=== PATIENT | female | born 1950 | race Caucasian/White ===

== ENCOUNTER → 2016-09-19 | Outpatient (REF) | payer MEDICARE, OTHER | LOC: M LAB REF 16:44 | PROVIDERS: ATTEND Internal Medicine | DX: N30.01 Acute cystitis with hematuria (principal) ==

== ENCOUNTER → 2016-10-02 | Outpatient (CLI) | payer MEDICARE, OTHER | LOC: M RAD 10:01 | DX: R41.3 Other amnesia (principal) ==

== ENCOUNTER → 2019-10-23 | Outpatient (CLI) | payer MEDICARE, OTHER ==
[~2019-10-23] MED LIST: ATOR40TA75 PO; CITA40TA4 PO; CLON0.5T17 PO; DOCU100C16 PO; ESOM1CAP5 PO; FLAG500T PO; LEVA750T7 PO; LEVO75TA4 PO; METH4PACK PO; METH750T2 PO; OMEP-221 PO; QUET200T2 PO; QUET400T PO; TRAZ-257 PO
[2019-10-23 14:25] LABS: BASO # 0.1 10^3/uL (0.0-0.2); BASO % 0.6 % (0.0-1.0); EOS # 0.2 10^3/uL (0.0-0.5); EOS % 1.7 % (0.0-3.0); HEMATOCRIT 43.7 % (36.0-47.0); HEMOGLOBIN 14.4 g/dl (12.0-15.5); LYMPH # 2.6 10^3/uL (1.5-5.0); LYMPH % 26.2 % (24.0-44.0); MEAN CORPUSCULAR HEMOGLOBIN 33.4 pg (27.0-33.0); MEAN CORPUSCULAR VOLUME 101.4 fl (80.0-96.0); MONO # 0.7 10^3/uL (0.0-0.8); MONO % 7.6 % (0.0-5.0); NEUTROPHILS # 6.2 10^3/uL (1.5-8.5); NEUTROPHILS % 63.5 % (36.0-66.0); PLATELET COUNT, AUTOMATED 236 10^3/uL (150-450); RED BLOOD COUNT 4.31 10^6/uL (4.00-5.40); WHITE BLOOD COUNT 9.8 10^3/uL (4.0-10.0)
[2019-10-23 14:58] LABS: ALBUMIN 4.1 GM/DL (3.2-5.2); ALT/SGPT 28 U/L (12-78); BILIRUBIN,TOTAL 0.3 MG/DL (0.2-1.0); BLOOD UREA NITROGEN 20 MG/DL (7-18); CALCIUM LEVEL 9.2 MG/DL (8.8-10.2); CARBON DIOXIDE LEVEL 25 MEQ/L (21-32); CHLORIDE LEVEL 108 MEQ/L (98-107); CK-MB VALUE MASS 2.6 NG/ML (<3.6); CPK CREATINE PHOSPHOKINASE 217 U/L (26-192); CREATININE FOR GFR 2.36 MG/DL (0.55-1.30); GLOMERULAR FILTRATION RATE 21.8 (>45); GLUCOSE, FASTING 87 MG/DL (70-100); POTASSIUM SERUM 4.2 MEQ/L (3.5-5.1); SODIUM LEVEL 138 MEQ/L (136-145); TOTAL PROTEIN 7.8 GM/DL (6.4-8.2); TROPONIN I < 0.02 NG/ML (< 0.10)
--- NOTE | 2019-10-24 09:52 | REP ---
REASON: Pleurodynia. PRIORS: None. There is a calcified granuloma in the right lower lobe. Lung springer are otherwise clear. The pleural angles are sharp, and the heart is not enlarged. IMPRESSION: No acute cardiopulmonary disease. Calcified granuloma right lower lobe. Electronically Signed by Seth Munoz DO 10/25/2019 08:29 A
--- NOTE | 2019-10-24 10:31 | REP ---
REASON: Nausea and vomiting. Supine and upright views of the abdomen show the intestinal gas pattern to be nonspecific. There are a few gas-filled nondilated small bowel loops present. This is in no particular fashion. The upright view shows no air-fluid levels in a particular fashion. There is no evidence of free subdiaphragmatic air. The osseous structures are within normal limits for the patient's age. IMPRESSION: Nonspecific intestinal gas pattern. Minimal ileus cannot be ruled out. Electronically Signed by Seth Munoz DO 10/25/2019 08:30 A
== END ==
LOC: M WUC 13:23
PROVIDERS: ATTEND Physician Assistant
DX: R07.1 Chest pain on breathing (principal); R11.2 Nausea with vomiting, unspecified

== ENCOUNTER 2019-12-12 22:47 | Inpatient (IN) | payer MEDICARE, OTHER ==
[~2019-12-12] VITALS: Ht 165.1 cm; Wt 95.7 kg
[2019-12-12] MEDS ORDERED: ONDANSETRON 4MG/2ML VIAL IV ONE (23:15)
[2019-12-12] MEDS ORDERED: NS 1,000 ML IV ONE (23:15)
[2019-12-12 23:23] LABS: BASO % 0.3 % (0.0-1.0); EOS % 0.3 % (0.0-3.0); HEMATOCRIT 42.6 % (36.0-47.0); HEMOGLOBIN 13.9 g/dl (12.0-15.5); LYMPH # 1.2 10^3/uL (1.5-5.0); LYMPH % 8.2 % (24.0-44.0); MEAN CORPUSCULAR HEMOGLOBIN 32.6 pg (27.0-33.0); MEAN CORPUSCULAR HGB CONC 32.6 g/dl (32.0-36.5); MEAN CORPUSCULAR VOLUME 99.8 fl (80.0-96.0); MONO % 6.8 % (0.0-5.0); NEUTROPHILS # 11.9 10^3/uL (1.5-8.5); NEUTROPHILS % 83.7 % (36.0-66.0); PLATELET COUNT, AUTOMATED 188 10^3/uL (150-450); RED BLOOD COUNT 4.27 10^6/uL (4.00-5.40); WHITE BLOOD COUNT 14.2 10^3/uL (4.0-10.0)
[2019-12-12 23:32] LABS: INR 0.96
[2019-12-12 23:50] LABS: ALT/SGPT 718 U/L (12-78); BILIRUBIN,TOTAL 1.6 MG/DL (0.2-1.0); BLOOD UREA NITROGEN 30 MG/DL (7-18); CALCIUM LEVEL 8.6 MG/DL (8.8-10.2); CARBON DIOXIDE LEVEL 27 MEQ/L (21-32); CHLORIDE LEVEL 105 MEQ/L (98-107); CPK CREATINE PHOSPHOKINASE 121 U/L (26-192); CREATININE FOR GFR 2.29 MG/DL (0.55-1.30); GLOMERULAR FILTRATION RATE 22.5 (>45); GLUCOSE, FASTING 198 MG/DL (70-100); LIPASE 99 U/L (73-393); MB/CK RELATIVE INDEX 0.83 (< OR =4); SODIUM LEVEL 139 MEQ/L (136-145); TOTAL PROTEIN 7.8 GM/DL (6.4-8.2); TROPONIN I < 0.02 NG/ML (< 0.10)
--- NOTE | 2019-12-13 00:02 | REPVR ---
PROCEDURE INFORMATION: Exam: CT Abdomen And Pelvis Without Contrast Exam date and time: 12/12/2019 11:25 PM Age: 69 years old Clinical indication: Abdominal pain; Generalized; Additional info: Gen abd pain, flank pain, ckd iv TECHNIQUE: Imaging protocol: Computed tomography of the abdomen and pelvis without contrast. Radiation optimization: All CT scans at this facility use at least one of these dose optimization techniques: automated exposure control; mA and/or kV adjustment per patient size (includes targeted exams where dose is matched to clinical indication); or iterative reconstruction. COMPARISON: CR ABDOMEN MIN 2 VIEW 10/23/2019 1:36 PM FINDINGS: Lungs: Linear atelectasis in the right middle lobe and left lower lobe. Liver: Normal. No mass. Gallbladder and bile ducts: Gallbladder is unremarkable. CBD measures 9 mm in diameter. Pancreas: Normal. No ductal dilation. Spleen: Normal. No splenomegaly. Adrenals: Normal. No mass. Kidneys and ureters: No hydronephrosis. Moderate renal atrophy. Circumscribed hypodense lesion in the upper pole of the right kidney measuring 16 mm. Stomach and bowel: Severe stool in the colon. No abnormal bowel dilatation. No abnormal bowel wall thickening. Negative for colonic diverticulitis. Appendix: Appendix is normal. Intraperitoneal space: Unremarkable. No free air. No significant fluid collection. Vasculature: Severe calcified atherosclerotic disease. No aortic aneurysm. Lymph nodes: Unremarkable. No enlarged lymph nodes. Bladder: Bladder is unremarkable. Reproductive: Status post hysterectomy. Bones/joints: Unremarkable. No acute fracture. Soft tissues: Unremarkable. IMPRESSION: 1. Severe stool in the colon. 2. No hydronephrosis. 3. Moderate renal atrophy. 4. Circumscribed hypodense lesion in the upper pole of the right. Consistent with benign cyst. No follow-up is necessary. 5. Additional findings as described. Electronically signed by: Tata Love On 12/13/2019 00:02:17 AM
[2019-12-13] MEDS ORDERED: ATOR40TA75 PO (00:04)
[2019-12-13] MEDS ORDERED: QUET400T PO (00:04)
[2019-12-13] MEDS ORDERED: ESOM1CAP5 PO (00:04)
[2019-12-13] MEDS ORDERED: TRAZ-257 PO (00:04)
[2019-12-13] MEDS ORDERED: LEVO75TA4 PO (00:04)
[2019-12-13] MEDS ORDERED: CITA40TA4 PO (00:04)
[2019-12-13] MEDS ORDERED: CLON0.5T17 PO (00:04)
[2019-12-13] MEDS: MORPHINE 4 MG/ML 1ML VIAL/SYRINGE (J2270) IV PRN ×2 (00:14→03:37)
--- NOTE | 2019-12-13 00:49 | REPVR ---
PROCEDURE INFORMATION: Exam: US Abdomen, Limited; Right Upper Quadrant Exam date and time: 12/13/2019 12:41 AM Age: 69 years old Clinical indication: Abdominal pain; Epigastric; Additional info: Abd pain, elevated liver enzymes TECHNIQUE: Imaging protocol: US abdomen. Real time ultrasound with image documentation. Limited exam focused on the right upper quadrant. COMPARISON: CT ABD PELVIS W/O CONTRAST 12/12/2019 11:20 PM FINDINGS: Limitations: Examination is limited by body habitus. Liver: Unremarkable. Gallbladder: Gallbladder is unremarkable. No gallstones. No gallbladder wall thickening. Common bile duct: CBD measures 8.3 mm in diameter. No biliary stone seen on this study. Pancreas: Pancreas is obscured by overlying bowel gas. Right kidney: Right kidney measures 11.1 cm in length. No right hydronephrosis. Simple cyst in the upper pole right kidney measuring 1.8 cm in diameter. Echogenic right kidney consistent with medical renal disease. Intraperitoneal space: No free fluid. IMPRESSION: 1. Unremarkable gallbladder. 2. Mildly dilated CBD. Distal obstructing stone or lesion cannot be excluded. 3. Echogenic right kidney consistent medical renal disease. 4. Benign simple cyst in the upper pole right kidney. No follow-up is necessary. COMMENTS: Consistent with the [employer]'s Incidental Findings Committee white paper (J Am Tatiana Radiol 2018): Any incidental renal lesion less than 1.0 cm or classified as too small to characterize, or any incidental cystic renal lesion characterized as simple-appearing, is likely benign. No follow-up imaging is recommended for these lesions per consensus recommendations based on imaging criteria. Electronically signed by: Tata Love On 12/13/2019 00:49:36 AM
[2019-12-13 00:56] LABS: BILIRUBIN, URINE MANUAL NEGATIVE (NEGATIVE); GLUCOSE, URINE (UA) MANUAL NEGATIVE (NEGATIVE); KETONE, URINE MANUAL NEGATIVE (NEGATIVE); UROBILINOGEN, URINE MANUAL NORMAL (NORMAL)
[2019-12-13 01:14] LABS: SQUAMOUS EPITHELIAL CELL URINE SMALL AMOUNT /hpf (SMALL AMT)
[2019-12-13 01:16] LABS: BACTERIA, URINE NONE SEEN; HYALINE CAST, URINE NONE SEEN /lpf (0-1)
[2019-12-13] MEDS ORDERED: MOM 30ML SUSPENSION UDC PO PRN (02:15)
[2019-12-13] MEDS ORDERED: OMEP-221 PO (02:37)
[2019-12-13] MEDS ORDERED: METH750T2 PO (02:40)
[2019-12-13] MEDS ORDERED: METH4PACK PO (02:40)
[2019-12-13 03:02] LABS: CREATININE,RANDOM URINE 28.6 MG/DL; TOTAL PROTEIN,RANDOM URINE 14.5 MG/DL (0.0-12.0)
[2019-12-13 03:05] VITALS: BP 158/90
[2019-12-13 06:00] VITALS: BP 133/70
[2019-12-13 06:25] LABS: HEMATOCRIT 40.7 % (36.0-47.0); HEMOGLOBIN 13.6 g/dl (12.0-15.5); MEAN CORPUSCULAR HEMOGLOBIN 33.3 pg (27.0-33.0); MEAN CORPUSCULAR HGB CONC 33.4 g/dl (32.0-36.5); MEAN CORPUSCULAR VOLUME 99.8 fl (80.0-96.0); PLATELET COUNT, AUTOMATED 168 10^3/uL (150-450); RED BLOOD COUNT 4.08 10^6/uL (4.00-5.40); WHITE BLOOD COUNT 14.8 10^3/uL (4.0-10.0)
[2019-12-13 06:45] LABS: INR 0.98; PROTHROMBIN TIME 13.2 SECONDS (11.8-14.0)
--- NOTE | 2019-12-13 06:56 | HPEPDOC ---
[facility] Medical History & Physical Date of Admission Dec 13, 2019 Date of Service: Dec 13, 2019 Other Provider Alissa Simon NP Attending Physician: LUC STARR MD History and Physical TIME OF SERVICE: 540AM CHIEF COMPLAINT: abdominal pain HISTORY OF PRESENT ILLNESS: The history was limited because the pt kept falling asleep. This 69 yr old F presented w c/o mid upper abdominal pain that radiates to the lower abdomen and then travels to her back that is worse with movement and better with codeine that has been present for 7 days. She was unable to describe its nature and severity because she kept falling asleep. She denied n/v/f/c/d. She admitted to falling asleep easily for about 1 month. REVIEW OF SYSTEMS: 12 point review of systems negative except as listed in HPI PAST MEDICAL/ SURGICAL HISTORY: Hypothyroidism CKD 4 Dyslipidemia GERD Anxiety /Depression Right renal cyst Back pain SOCIAL HISTORY: No tobacco / lives in [place] in the area for a few months FAMILY HISTORY: Reviewed none ALLERGIES: Please see below. HOME MEDICATIONS: Please see below. PHYSICAL EXAMINATION: Vital Signs Date Time Temp Pulse Resp B/P (MAP) Pulse Ox O2 Delivery O2 Flow Rate FiO2 12/12/19 22:47 96.9 101 20 130/90 (103) 95 Room Air GENERAL APPEARANCE: obese/ NAD HEENT: MMM&P CARDIOVASCULAR: RRR/NMRG / no BLE edema LUNGS: CTAB on RA ABDOMEN: + BS/ she grimaces w percussion of the epigastric region MUSCULOSKELETAL: NCAT / PEPPER x 4 INTEGUMENT: not flushed NEUROLOGICAL:+ mild asterixis / speech not dysarthric PSYCHIATRIC: asleep but intermittently arousable LABORATORY DATA: 12/12/19 23:05 Laboratory Tests 2 12/12/19 23:05: Immature Granulocyte % (Auto) 0.7, Neutrophils (%) (Auto) 83.7H, Lymphocytes (%) (Auto) 8.2L, Monocytes (%) (Auto) 6.8H, Eosinophils (%) (Auto) 0.3, Basophils (%) (Auto) 0.3, Neutrophils # (Auto) 11.9H, Lymphocytes # (Auto) 1.2L, Monocytes # (Auto) 1.0H, Eosinophils # (Auto) 0.0, Basophils # (Auto) 0.0, Nucleated Red Blood Cells % (auto) 0.0, Prothrombin Time 13.0, Prothromb Time International Ratio 0.96, Activated Partial Thromboplast Time 28.0, Anion Gap 7L, Glomerular Filtration Rate 22.5L, Lactic Acid Level 1.7, Calcium Level 8.6L, Total Bilirubin 1.6H, Direct Bilirubin 1.0H, Aspartate Amino Transf (AST/SGOT) 535H, Alanine Aminotransferase (ALT/SGPT) 718H, Alkaline Phosphatase 127H, Total Creatine Kinase 121, Creatine Kinase MB 1.0, Creatine Kinase MB Relative Index 0.83, Troponin I < 0.02, Total Protein 7.8, Albumin 4.0, Albumin/Globulin Ratio 1.1L, Lipase 99 12/12/19 23:50: Urine Color (JUAN ALBERTO) YELLOW, Urine Appearance (JUAN ALBERTO) CLEAR, Urine pH (JUAN ALBERTO) 6.0, Urine Specific [place] (JUAN ALBERTO) 1.010, Urine Protein NEGATIVE, Bedside Urine Glucose (UA) NEGATIVE, Bedside Urine Ketones (LAB) NEGATIVE, Bedside Urine Blood POSITIVEH, Bedside Urine Nitrite (LAB) NEGATIVE, Bedside Urine Bilirubin (LAB) NEGATIVE, Bedside Urine Urobilinogen (LAB) NORMAL, Bedside Urine Leukocyte Esterase (L NEGATIVE, Urine Sediment Examination PERFORMED, Urine RBC 3-5H, Urine WBC 0-1, Urine Squamous Epithelial Cells SMALL AMOUNT, Urine Bacteria NONE SEEN, Urine Hyaline Casts NONE SEEN IMAGING: US gallbladder IMPRESSION: 1. Unremarkable gallbladder. 2. Mildly dilated CBD. Distal obstructing stone or lesion cannot be excluded. 3. Echogenic right kidney consistent medical renal disease. 4. Benign simple cyst in the upper pole right kidney. No follow-up is necessary. CT abd/pelvis IMPRESSION: 1. Severe stool in the colon. 2. No hydronephrosis. 3. Moderate renal atrophy. 4. Circumscribed hypodense lesion in the upper pole of the right. Consistent with benign cyst. No follow-up is necessary. 5. Additional findings as described. MICROBIOLOGY: 12/13/19 Blood Culture, Received Pending ASSESSMENT: is a 69 yr old w a hx of CKD4, Hypothyrodism and Depression who presented w abdominal pain and will be admitted for evaluation of Hepatitis of unclear cause. PLAN: 1.Hepatitis Plan: admit to medical floor / f/u MRCP, GI consult, hepatitis panel, ammonia, drug screen, ETHO, trend LFTs 2. SIRS Plan: f/u lactic acid, blood cx 3. CKD 4 Plan: f/u BMP, PTH, phos, Vitamin D, urine studies, renal US 5. Hypothyroidism Plan: levothyroxine 6.Obesity Plan: f/u A1C DVT px w SCDs Dispo: home after more than 2 midnights stay Home Medications Scheduled Citalopram Hydrobromide (Citalopram HBr) 40 Mg Tablet, 20 MG PO DAILY Clonazepam (Clonazepam) 0.5 Mg Tab.rapdis, 0.5 MG PO TID Docusate Sodium (Docusate Sodium) 100 Mg Capsule, 100 MG PO BID Levofloxacin (Levaquin) 750 Mg Tablet, 750 MG PO DAILY Levothyroxine Sodium (Levothyroxine Sodium) 75 Mcg Tablet, 75 MCG PO DAILY Methylprednisolone (Methylprednisolone) 4 Mg Tab.ds.pk, 4 MG PO ASDIRECTED Metronidazole (Flagyl) 500 Mg Tablet, 500 MG PO Q8H FOR 10 DAYS Omeprazole (Omeprazole) 40 Mg Capsule.dr, 40 MG PO DAILY Quetiapine Fumarate (Quetiapine Fumarate) 200 Mg Tablet, 200 MG PO QPM Trazodone HCl (Trazodone HCl) 100 Mg Tablet, 200 MG PO QPM Allergies Coded Allergies: No Known Allergies (Unverified , 12/12/19) A-FIB/CHADSVASC A-FIB History Current/History of A-Fib/PAF?: No Current PO Anticoag Therapy: No LUC STARR MD Dec 13, 2019 06:56
[2019-12-13] MEDS: LEVOTHYROXINE 75MCG TABLET (0.075MG) PO SCH (07:00)
[2019-12-13] MEDS: OMEPRAZOLE 20 MG CAP PO SCH (07:51)
[2019-12-13] MEDS: DOCUSATE SODIUM 100 MG CAP PO SCH ×2 (07:51→21:21)
[2019-12-13 08:07] LABS: HEMOGLOBIN A1c 6.2 %
[2019-12-13] MEDS ORDERED: methocarbamoL 750 MG TAB PO SCH (09:00)
--- NOTE | 2019-12-13 11:52 | REPVR ---
PROCEDURE INFORMATION: Exam: MR Abdomen Without Contrast, MRCP Exam date and time: 12/13/2019 11:04 AM Age: 69 years old Clinical indication: Abnormal findings; Abnormal radiologic finding of the abdomen; Radiologic exam and body structure: US, CT; Additional info: Abdominal pain w transaminitis TECHNIQUE: Imaging protocol: MR of the abdomen without contrast. Exam focused on the bile ducts and pancreatic ducts. 3D MRCP images were acquired and processed without radiologist supervision. 3D rendering (Not supervised by radiologist): MIP and/or 3D reconstructed images were created by the technologist. COMPARISON: CT ABD PELVIS W/O CONTRAST 12/12/2019 11:20 PM FINDINGS: Liver: No mass. Gallbladder and bile ducts: Common bile duct measures up to 5 mm. No convincing intraluminal filling defects. A linear filling defect along the posterior aspect of the common bile duct for example on coronal T2 image 12 is favored secondary to volume averaging, and is not confirmed on axial imaging. Gallbladder is partially decompressed. No cholelithiasis. No intrahepatic biliary ductal dilation. Pancreas: Unremarkable. No ductal dilation. Kidneys and ureters: Mild bilateral renal atrophy with numerous bilateral simple and subcentimeter renal cortical cysts. Dilated right extrarenal pelvis. Intraperitoneal space: No fluid collection. IMPRESSION: 1. No cholelithiasis, choledocholithiasis, or biliary ductal dilation. 2. Mild renal atrophy with numerous renal cysts. COMMENTS: Consistent with the [employer]'s Incidental Findings Committee white paper (J Am Tatiana Radiol 2018): Any incidental renal lesion less than 1.0 cm or classified as too small to characterize, or any incidental cystic renal lesion characterized as simple-appearing, is likely benign. No follow-up imaging is recommended for these lesions per consensus recommendations based on imaging criteria. Electronically signed by: Germán Hernandez On 12/13/2019 11:52:30 AM
[2019-12-13] MEDS ORDERED: ONDANSETRON 4MG/2ML VIAL IV PRN (12:45)
--- NOTE | 2019-12-13 12:54 | IPNPDOC ---
Text Note Date of Service The patient was seen on 12/13/19. NOTE Subjective complains of back pain, somnolent and falls asleep during interview but easily arousable. Slow to answer questions. Also complains of upper abdominal pain. PHYSICAL EXAM: VITALS: As below GENERAL APPEARANCE: obese/ NAD, Somnolent HEENT: MMM&P CARDIOVASCULAR: RRR/NMRG / no BLE edema LUNGS: CTAB on RA ABDOMEN: + BS/ she grimaces w percussion of the epigastric region, tenderness at the left mid back. MUSCULOSKELETAL: NCAT / PEPPER x 4 INTEGUMENT: not flushed NEUROLOGICAL: speech not dysarthric, No focal neurodeficits. PSYCHIATRIC: Oriented x 3. Labs reviewed IMAGING: US gallbladder IMPRESSION: 1. Unremarkable gallbladder. 2. Mildly dilated CBD. Distal obstructing stone or lesion cannot be excluded. 3. Echogenic right kidney consistent medical renal disease. 4. Benign simple cyst in the upper pole right kidney. No follow-up is necessary. CT abd/pelvis IMPRESSION: 1. Severe stool in the colon. 2. No hydronephrosis. 3. Moderate renal atrophy. 4. Circumscribed hypodense lesion in the upper pole of the right. Consistent with benign cyst. No follow-up is necessary. 5. Additional findings as described. MRCP: No cholelithiasis, choledocholithiasis, or biliary ductal dilation. Assessment and PLAN: This 69 yr old F with PMH of hypothyroid, ckd, HLD, GERD, anxiety/ depression, chronic back pain presented w c/o left sided flank and back pain and mid upper abdominal pain. She started with back pain so she started taking her medrol pack which she takes as needed for back inflammation and pain. She then started the abdominal pain and came to the ED. She has been somnolent since admission and reports that she easily falls asleep for the past month. She was found to have transaminitis and was admitted. Transaminitis/ Hepatitis No obstruction in MRCP. no stones hepatitis panel ordered IVF. Constipation with large stool in colon will give lactulose. SIRS Plan: f/u lactic acid, blood cx CKD 4 creatinine stable Hypothyroidism levothyroxine Obesity AIC normal Acute on chronic back pain will give oxycodone prn hold if sedated. stop metocarbomol and stop medrol. Anxiety/ depression will reduce dose of seroquel and hold trazodone for now. DVT px w SCDs VS,Fishbone, I+O VS, Fishbone, I+O Laboratory Tests 12/12/19 23:05 12/13/19 06:13 Vital Signs Date Time Temp Pulse Resp B/P (MAP) Pulse Ox O2 Delivery O2 Flow Rate FiO2 12/13/19 06:00 99.7 105 18 133/70 (91) 93 Room Air I&O- Last 24 Hours up to 6 AM 12/13/19 06:00 Intake Total 1150 ml Balance 1150 ml DOMINIC AGUILAR MD Dec 13, 2019 12:54
[2019-12-13] MEDS: LACTULOSE 20 GM/30 ML SYRUP UD PO SCH ×2 (13:13→17:41)
[2019-12-13] MEDS: oxyCODONE 5MG TAB PO PRN ×2 (13:13→21:21)
[2019-12-13] MEDS: NS 1,000 ML IV SCH ×2 (13:14→23:04)
[2019-12-13 14:00] VITALS: BP 138/71
--- NOTE | 2019-12-13 19:57 | CR.PDOC ---
General Date of Consultation: Dec 13, 2019 Referring Provider: LUC STARR MD Attending Physician: KRISTIAN REAVES MD Consultation Referring physician / PCP : Fatou Solorzano Reason for consult: Abnormal liver panel HPI: 69 year old Female patient with hypothyroidism, CKD III, HLD, GERD, anxiety/ depression ( prior multiple therapies, follows in [place]), chronic back pain presented to ER complaining of abdominal pain. Patient was very somnolent when she arrived and history was limited ( could be related to her recent adjusted psychiatry medications). Patient was noted to have abnormal liver tests and GI was consulted for the same. History was obtained from patient and her . Patient reports having epigastric abdominal pain worsening with nausea but no vomiting. Patient denies any documented fevers prior to hospitalization but has subjective chills and febrile to touch. Patient denies any cough, or burning with urination. Pertinent negative GI symptoms: Patient denies nausea, vomiting, diarrhea, abdominal pain, loss of appetite, early satiety or unintentional weight loss, hematemesis, melena or hematochezia. Patient reports some baseline constipation. Review of Systems: GI: as stated above CVS: No chest pain, No palpitations, No leg swelling RS: No Shortness of breath, No Wheezing SPORTS ANCHOR: No loss of consciousness, No focal motor weakness., Hematology: No easy bruising, No gum bleeding, Musculoskeletal: No joint pain, ambulating well. : No blood in urine, No burning sensation of the urine ENT: No ear discharge/ pain, No dysphagia. Eyes: No photophobia. Skin: No rash Home medications: reviewed. No Plavix and No anticoagulants Medical h/o: As above. Surgical h/o: None on abdomen. Social h/o: Denies Alcohol, smoking, IVDA/ drugs. Family h/o of GI cancers - None Prior Endoscopies: None in [facility]. Prior GI evaluation: None in [facility] Exam: Vitals: reviewed. Noted fever spike during hospitalization. General: Alert and oriented x 3, fatigued/ sleepy, but not in acute distress HEENT: No pallor, no icterus. Normal oropharynx, NO cervical lymphadenopathy. Chest: symmetric with bilateral air entry, CVS: S1, S2 heard, Abdomen: non-distended, soft, tenderness in right upper and epigastric area, but no rigidity or guarding, no palpable masses, normal bowel sounds heard. Rectal exam: Patient refused. Extremities: pulses palpable, no pedal edema, SPORTS ANCHOR: no focal motor or sensory deficits. Moves all extremities Skin: no rash. Labs: reviewed. Imaging: none / reviewed. Blood cultures positive for E. coli. Impression: -- Acute onset abdominal pain with documented fever during hospitalization, with Abnormal liver panel ( cholestatic and worsening on follow up labs), abnormal ultrasound ( showing dilated CBD and suspected obstruction) but normal MRCP, -- DDx-- Likely distal CBD stone with cholangitis vs less like passed CBD stone vs biliary sludge vs r/o other causes for hepatitis. -- Chronic renal failure -- following with nephrology and PCP in [place]. Recommendations: -- Patient educated about the prior test results and all questions answered. Patient is also updated over the phone. -- management of the psychiatry medications as per the primary team. -- IV antibiotics -- prefer Zosyn -- dose adjusted to renal function. -- In view of suspected cholangitis and clinical picture, patient will benefit from ERCP based on the trend in Liver panel and clinical Course ( though MRCP is normal there is high suspicion for distal CBD stone or CBD sludge). Patient and her were educated about the procedure, indications, risks (including but not limited to pancreatitis, bleeding, infection, perforation, anesthesia risks, including ), benefits and all alternatives including conservative measures without intervention. Patient verbalized understanding and consented for the procedure(s). -- Please follow operative note for post procedure recommendations. -- Plan of care educated to patient and patient verbalized understanding and agreed. All questions answered. -- Recommendations communicated to primary team. Patient to follow with PCP upon discharge for routine medical care. Follow up note after the ERCP: Patient tolerated the procedure well. Noted to have small biliary stones and sludge with pus. Likely cholangitis. Biliary sphincterotomy, balloon sweep, and biliary stent placement. ( detailed ERCP report in provation and printed copy placed in chart). Patient reported she will be leaving to [place] at the end of this month. She does have a [facility] in [place], where she gets her routine screening colonoscopy and also previously had EGD for swallowing issues in past. I discussed in detail about the different options and patient wanted to follow up with GI in [place] to get the CBD stent out. Patient and her were given the number of our GI clinic to call if any issues with setting up the follow up for this in [place]. Patient to complete a course of antibiotic for 7-10 days ( can be switched to oral antibiotics based on the culture sensitivity). Plan of care discussed with patient, her and primary team. Patient agreed with plan of care. Vital Signs/I&O Vital Signs Date Time Temp Pulse Resp B/P (MAP) Pulse Ox O2 Delivery O2 Flow Rate FiO2 12/13/19 13:43 17 12/13/19 13:13 Room Air 12/13/19 06:00 99.7 105 133/70 (91) 93 I&O- Last 24 Hours up to 6 AM 12/13/19 06:00 Intake Total 1150 ml Balance 1150 ml Laboratory Data Labs 24H Laboratory Tests 2 12/12/19 23:05: Immature Granulocyte % (Auto) 0.7, Neutrophils (%) (Auto) 83.7H, Lymphocytes (%) (Auto) 8.2L, Monocytes (%) (Auto) 6.8H, Eosinophils (%) (Auto) 0.3, Basophils (%) (Auto) 0.3, Neutrophils # (Auto) 11.9H, Lymphocytes # (Auto) 1.2L, Monocytes # (Auto) 1.0H, Eosinophils # (Auto) 0.0, Basophils # (Auto) 0.0, Nucleated Red Blood Cells % (auto) 0.0, Prothrombin Time 13.0, Prothromb Time International Ratio 0.96, Activated Partial Thromboplast Time 28.0, Anion Gap 7L, Glomerular Filtration Rate 22.5L, Lactic Acid Level 1.7, Calcium Level 8.6L, Total Bilirubin 1.6H, Direct Bilirubin 1.0H, Aspartate Amino Transf (AST/SGOT) 535H, Alanine Aminotransferase (ALT/SGPT) 718H, Alkaline Phosphatase 127H, Total C reatine Kinase 121, Creatine Kinase MB 1.0, Creatine Kinase MB Relative Index 0.83, Troponin I < 0.02, Total Protein 7.8, Albumin 4.0, Albumin/Globulin Ratio 1.1L, Lipase 99 12/12/19 23:50: Urine Color (JUAN ALBERTO) YELLOW, Urine Appearance (JUAN ALBERTO) CLEAR, Urine pH (JUAN ALBERTO) 6.0, Urine Specific [place] (JUAN ALBERTO) 1.010, Urine Protein NEGATIVE, Bedside Urine Glucose (UA) NEGATIVE, Bedside Urine Ketones (LAB) NEGATIVE, Bedside Urine Blood POSITIVEH, Bedside Urine Nitrite (LAB) NEGATIVE, Bedside Urine Bilirubin (LAB) NEGATIVE, Bedside Urine Urobilinogen (LAB) NORMAL, Bedside Urine Leukocyte Connie rase (L NEGATIVE, Urine Sediment Examination PERFORMED, Urine RBC 3-5H, Urine WBC 0-1, Urine Squamous Epithelial Cells SMALL AMOUNT, Urine Bacteria NONE SEEN, Urine Hyaline Casts NONE SEEN 12/13/19 00:00: Urine Random Creatinine 28.6, Urine Random Total Protein 14.5H, Urine Random Sodium 38, Urine Random Urea Nitrogen 274 12/13/19 06:13: Nucleated Red Blood Cells % (auto) 0.0, Prothrombin Time 13.2, Prothromb Time International Ratio 0.98, Estimated Mean Plasma Glucose 131H, Hemoglobin A1c 6.2, Ammonia 14 12/13/19 09:01: Ethyl Alcohol Level < 0.003 CBC/BMP Laboratory Tests 12/12/19 23:05 12/13/19 06:13 Microbiology Microbiology 12/13/19 Blood Culture - Preliminary, Resulted Allergies Coded Allergies: No Known Allergies (Unverified , 12/12/19) Home Medications Scheduled Citalopram Hydrobromide (Citalopram HBr) 40 Mg Tablet, 20 MG PO DAILY for 7 Days, #7 Clonazepam (Clonazepam) 0.5 Mg Tab.rapdis, 0.5 MG PO TID, (Reported) Docusate Sodium (Docusate Sodium) 100 Mg Capsule, 100 MG PO BID for 14 Days, #28 Levofloxacin (Levaquin) 750 Mg Tablet, 750 MG PO DAILY for 7 Days, #7 Levothyroxine Sodium (Levothyroxine Sodium) 75 Mcg Tablet, 75 MCG PO DAILY, (Reported) Methylprednisolone (Methylprednisolone) 4 Mg Tab.ds.pk, 4 MG PO ASDIRECTED, (Reported) Metronidazole (Flagyl) 500 Mg Tablet, 500 MG PO Q8H for 7 Days, #21 FOR 10 DAYS Omeprazole (Omeprazole) 40 Mg Capsule.dr, 40 MG PO DAILY, (Reported) Quetiapine Fumarate (Quetiapine Fumarate) 200 Mg Tablet, 200 MG PO QPM for 7 Days, #7 Trazodone HCl (Trazodone HCl) 100 Mg Tablet, 200 MG PO QPM, (Reported) KRISTIAN REAVES MD Dec 13, 2019 19:57
[2019-12-13 20:15] VITALS: BP 134/71
[2019-12-13 20:37] LABS: ALBUMIN 3.7 GM/DL (3.2-5.2); ALT/SGPT 1219 U/L (12-78); BILIRUBIN,TOTAL 3.1 MG/DL (0.2-1.0); BLOOD UREA NITROGEN 26 MG/DL (7-18); CALCIUM LEVEL 8.7 MG/DL (8.8-10.2); CARBON DIOXIDE LEVEL 28 MEQ/L (21-32); CHLORIDE LEVEL 111 MEQ/L (98-107); CREATININE FOR GFR 2.21 MG/DL (0.55-1.30); GLOMERULAR FILTRATION RATE 23.4 (>45); GLUCOSE, FASTING 200 MG/DL (70-100); MAGNESIUM LEVEL 2.2 MG/DL (1.8-2.4); PHOSPHORUS LEVEL 3.3 MG/DL (2.5-4.9); POTASSIUM SERUM 4.8 MEQ/L (3.5-5.1); SODIUM LEVEL 144 MEQ/L (136-145); TOTAL PROTEIN 7.2 GM/DL (6.4-8.2)
[2019-12-13 20:58] LABS: HEMATOCRIT 36.7 % (36.0-47.0); MEAN CORPUSCULAR HEMOGLOBIN 32.8 pg (27.0-33.0); MEAN CORPUSCULAR HGB CONC 32.7 g/dl (32.0-36.5); MEAN CORPUSCULAR VOLUME 100.3 fl (80.0-96.0); PLATELET COUNT, AUTOMATED 150 10^3/uL (150-450); RED BLOOD COUNT 3.66 10^6/uL (4.00-5.40); WHITE BLOOD COUNT 14.4 10^3/uL (4.0-10.0)
[2019-12-13] MEDS ORDERED: QUEtiapine FUMARATE 200 MG TAB PO SCH (21:00)
[2019-12-13] MEDS ORDERED: traZODone 100 MG TAB PO SCH (21:00)
[2019-12-13] MEDS: QUEtiapine FUMARATE 200 MG TAB PO SCH (21:20)
[2019-12-13 21:23] LABS: ALBUMIN 3.1 GM/DL (3.2-5.2); BILIRUBIN,TOTAL 4.8 MG/DL (0.2-1.0); CALCIUM LEVEL 8.1 MG/DL (8.8-10.2); CREATININE FOR GFR 2.26 MG/DL (0.55-1.30); GLOMERULAR FILTRATION RATE 22.8 (>45); POTASSIUM SERUM 3.8 MEQ/L (3.5-5.1); TOTAL PROTEIN 6.8 GM/DL (6.4-8.2)
[2019-12-13 22:00] VITALS: BP 136/66
[2019-12-14] MEDS: LACTULOSE 20 GM/30 ML SYRUP UD PO SCH ×4 (00:15→19:47)
[2019-12-14] MEDS: PIPERACILLIN/TAZOBACTAM SOD 2.25 GM in D5W MINI-BAG PLUS 50 ML IV SCH ×4 (00:15→19:47)
[2019-12-14] MEDS: LEVOTHYROXINE 75MCG TABLET (0.075MG) PO SCH (05:43)
[2019-12-14 06:00] VITALS: BP 141/95
[2019-12-14 07:09] LABS: BASO % 0.2 % (0.0-1.0); EOS # 0.2 10^3/uL (0.0-0.5); EOS % 1.4 % (0.0-3.0); HEMATOCRIT 36.9 % (36.0-47.0); HEMOGLOBIN 12.2 g/dl (12.0-15.5); LYMPH # 0.7 10^3/uL (1.5-5.0); LYMPH % 5.6 % (24.0-44.0); MEAN CORPUSCULAR HEMOGLOBIN 33.5 pg (27.0-33.0); MEAN CORPUSCULAR HGB CONC 33.1 g/dl (32.0-36.5); MEAN CORPUSCULAR VOLUME 101.4 fl (80.0-96.0); MONO # 1.2 10^3/uL (0.0-0.8); NEUTROPHILS # 9.5 10^3/uL (1.5-8.5); NEUTROPHILS % 82.3 % (36.0-66.0); PLATELET COUNT, AUTOMATED 140 10^3/uL (150-450); RED BLOOD COUNT 3.64 10^6/uL (4.00-5.40); WHITE BLOOD COUNT 11.5 10^3/uL (4.0-10.0)
[2019-12-14 07:26] LABS: INR 1.2; PROTHROMBIN TIME 15.5 SECONDS (11.8-14.0)
[2019-12-14 07:27] LABS: PARTIAL THROMBOPLASTIN TIME 32.7 SECONDS (25.0-38.4)
[2019-12-14 07:42] LABS: BILIRUBIN,DIRECT 3.9 MG/DL (0.0-0.2); BILIRUBIN,TOTAL 4.9 MG/DL (0.2-1.0); CALCIUM LEVEL 7.8 MG/DL (8.8-10.2); CREATININE FOR GFR 2.16 MG/DL (0.55-1.30); GLOMERULAR FILTRATION RATE 24.1 (>45); POTASSIUM SERUM 4.3 MEQ/L (3.5-5.1); TOTAL PROTEIN 6.3 GM/DL (6.4-8.2)
[2019-12-14] MEDS: NS 1,000 ML IV SCH (08:03)
[2019-12-14] MEDS: OMEPRAZOLE 20 MG CAP PO SCH (09:00)
[2019-12-14] MEDS: DOCUSATE SODIUM 100 MG CAP PO SCH ×2 (09:00→21:00)
--- NOTE | 2019-12-14 11:19 | IPNPDOC ---
Text Note Date of Service The patient was seen on 12/14/19. NOTE Subjective: Continues to complain of bilateral hip pain more around the illiac crest. also upper abdominal pain. She dillard a t max o 101.4 last night , her blood cultures are positive. LFTs with obstructive pattern. Possibly having Cholangitis. Awake and alert this morning. Somnolence resolved. PHYSICAL EXAM: VITALS: As below GENERAL APPEARANCE: obese/ NAD, HEENT: MMM&P CARDIOVASCULAR: RRR/NMRG / no BLE edema LUNGS: CTAB on RA ABDOMEN: + BS, abdomen soft , but tender int he epigastrium and right and left upper abdomen. Back: Tenderness at both the illiac crests. MUSCULOSKELETAL: NCAT / PEPPER x 4 INTEGUMENT: not flushed NEUROLOGICAL: speech not dysarthric, No focal neurodeficits. PSYCHIATRIC: Oriented x 3. Labs reviewed IMAGING: US gallbladder IMPRESSION: 1. Unremarkable gallbladder. 2. Mildly dilated CBD. Distal obstructing stone or lesion cannot be excluded. 3. Echogenic right kidney consistent medical renal disease. 4. Benign simple cyst in the upper pole right kidney. No follow-up is necessary. CT abd/pelvis IMPRESSION: 1. Severe stool in the colon. 2. No hydronephrosis. 3. Moderate renal atrophy. 4. Circumscribed hypodense lesion in the upper pole of the right. Consistent with benign cyst. No follow-up is necessary. 5. Additional findings as described. MRCP: No cholelithiasis, choledocholithiasis, or biliary ductal dilation. Assessment and PLAN: This 69 yr old F with PMH of hypothyroid, ckd, HLD, GERD, anxiety/ depression, chronic back pain presented w c/o left sided flank and back pain and mid upper abdominal pain. She started with back pain so she started taking her medrol pack which she takes as needed for back inflammation a nd pain. She then started the abdominal pain and came to the ED. She has been somnolent since admission and reports that she easily falls asleep for the past month. She was found to have transaminitis and was admitted. She later spiked a fever and blood cultures were positive, Her LFTS are obstructive pattern. Cholangitis / sepsis with obstructive jaundice blood culture gram negative rods on Zosyn. Planned for ERCP today by Dr Garcia. NPO, IVF Transaminitis probably from CBD obstruction though MRCP did not show any obstruction. hepatitis panel ordered IVF. Constipation with large stool in colon lactulose. CKD 4 etiology unknown. As per patient planned for renal biopsy in [place] creatinine stable Hypothyroidism levothyroxine Obesity AIC normal Acute on chronic back pain will give oxycodone prn hold if sedated. stop metocarbomol and stop medrol. Anxiety/ depression will reduce dose of seroquel and hold trazodone for now. DVT px w SCDs VS,Fishbone, I+O VS, Fishbone, I+O Laboratory Tests 12/13/19 20:49 12/14/19 06:56 Vital Signs Date Time Temp Pulse Resp B/P (MAP) Pulse Ox O2 Delivery O2 Flow Rate FiO2 12/14/19 06:00 98.1 100 17 141/95 (110) 96 Room Air I&O- Last 24 Hours up to 6 AM 12/14/19 05:59 Intake Total 5980 ml Output Total 5400 ml Balance 580 ml DOMINIC AGUILAR MD Dec 14, 2019 11:19
[2019-12-14 11:38] LABS: HEPATITIS C VIRUS ABY INDEX 0.2 INDEX (<0.8)
[2019-12-14 12:32] LABS: PTH INTACT 141.1 PG/ML (18.5-88.0); TOTAL 25(OH) VITAMIN D 34.6 NG/ML (30.0-100.0)
[2019-12-14 12:44] LABS: HEPATITIS B SURFACE ANTIGEN NEGATIVE (NEGATIVE)
[2019-12-14 13:08] LABS: HEPATITIS B CORE ANTIBODY IGM NEGATIVE (NEGATIVE)
[2019-12-14 13:11] LABS: HEPATITIS A ANTIBODY IGM NEGATIVE (NEGATIVE)
[2019-12-14] MEDS: MORPHINE 2 MG/ML 1ML VIAL (J2270) IV PRN ×2 (13:32→21:18)
[2019-12-14 14:00] VITALS: BP 137/92
[2019-12-14] MEDS ORDERED: ISOVUE-300 61% 50ML VIAL As Ordered ONE (16:08)
[2019-12-14] MEDS ORDERED: MIDAZOLAM INJ 2MG/2ML VIAL (J2250 PER 1MG) As Ordered ONE (16:10)
[2019-12-14] MEDS ORDERED: fentaNYL 100 MCG/2 ML INJECTION (J3010) As Ordered ONE (16:11)
[2019-12-14] MEDS ORDERED: propofoL 200 MG/20 ML VIAL As Ordered ONE (16:11)
[2019-12-14] MEDS ORDERED: LIDOCAINE 2% 100MG/5ML SDV (FOR ANES.) As Ordered ONE (16:11)
[2019-12-14] MEDS ORDERED: dexameTHASONE 4 MG/ML 1ML VIAL (J1100 PER 1MG) As Ordered ONE (16:12)
[2019-12-14] MEDS ORDERED: ONDANSETRON 4MG/2ML VIAL As Ordered ONE (16:12)
[2019-12-14] MEDS ORDERED: METOCLOPRAMIDE INJ 10MG/2ML VIAL (J2765 PER 1) As Ordered ONE (16:12)
[2019-12-14] MEDS ORDERED: ROCURONIUM BROMIDE 50 MG/5 ML VIAL As Ordered ONE (16:14)
[2019-12-14] MEDS ORDERED: PHENYLephrine HCL 500 MCG/5 ML (100MCG/ML) SYRINGE (J2370) As Ordered ONE (17:11)
[2019-12-14] MEDS ORDERED: SUGAMMADEX SODIUM 500 MG/5 ML VIAL (BRIDION) As Ordered ONE (17:11)
[2019-12-14] MEDS ORDERED: GLUCAGON INJ 1MG VIAL As Ordered ONE (17:15)
[2019-12-14] MEDS ORDERED: NORCO, ANEXSIA 5/325MG TABLET (HYDROcodone/ACETAMINOPHEN) As Ordered ONE (18:34)
[2019-12-14] MEDS ORDERED: NORCO, ANEXSIA 5/325MG TABLET (HYDROcodone/ACETAMINOPHEN) PO PRN (18:45)
[2019-12-14] MEDS ORDERED: fentaNYL 100 MCG/2 ML INJECTION (J3010) IV PRN (18:45)
[2019-12-14] MEDS ORDERED: NS 0.45% 1,000 ML IV SCH (18:45)
[2019-12-14] MEDS: QUEtiapine FUMARATE 200 MG TAB PO SCH (21:17)
[2019-12-14] MEDS: LR 1,000 ML IV SCH (21:20)
[2019-12-14 22:00] VITALS: BP 157/95
[2019-12-15] MEDS: PIPERACILLIN/TAZOBACTAM SOD 2.25 GM in D5W MINI-BAG PLUS 50 ML IV SCH ×4 (00:27→18:26)
[2019-12-15] MEDS: LR 1,000 ML IV SCH ×3 (05:00→18:15)
[2019-12-15 06:00] VITALS: BP 157/97
[2019-12-15] MEDS: LACTULOSE 20 GM/30 ML SYRUP UD PO SCH ×4 (06:00→18:26)
[2019-12-15] MEDS: LEVOTHYROXINE 75MCG TABLET (0.075MG) PO SCH (06:25)
[2019-12-15 07:24] LABS: BASO % 0.1 % (0.0-1.0); HEMATOCRIT 35.7 % (36.0-47.0); HEMOGLOBIN 11.4 g/dl (12.0-15.5); LYMPH # 0.6 10^3/uL (1.5-5.0); LYMPH % 6.6 % (24.0-44.0); MEAN CORPUSCULAR HEMOGLOBIN 32.8 pg (27.0-33.0); MEAN CORPUSCULAR HGB CONC 31.9 g/dl (32.0-36.5); MEAN CORPUSCULAR VOLUME 102.6 fl (80.0-96.0); MONO # 0.4 10^3/uL (0.0-0.8); MONO % 4.5 % (0.0-5.0); NEUTROPHILS # 8.1 10^3/uL (1.5-8.5); NEUTROPHILS % 88.3 % (36.0-66.0); PLATELET COUNT, AUTOMATED 132 10^3/uL (150-450); RED BLOOD COUNT 3.48 10^6/uL (4.00-5.40); WHITE BLOOD COUNT 9.2 10^3/uL (4.0-10.0)
[2019-12-15 08:02] LABS: ALBUMIN 2.9 GM/DL (3.2-5.2); BILIRUBIN,TOTAL 2.3 MG/DL (0.2-1.0); CALCIUM LEVEL 8.5 MG/DL (8.8-10.2); CREATININE FOR GFR 1.98 MG/DL (0.55-1.30); GLOMERULAR FILTRATION RATE 26.6 (>45); POTASSIUM SERUM 4.6 MEQ/L (3.5-5.1); TOTAL PROTEIN 6.1 GM/DL (6.4-8.2)
[2019-12-15] MEDS: OMEPRAZOLE 20 MG CAP PO SCH (08:09)
[2019-12-15] MEDS: MORPHINE 2 MG/ML 1ML VIAL (J2270) IV PRN ×5 (08:10→21:16)
[2019-12-15] MEDS: DOCUSATE SODIUM 100 MG CAP PO SCH ×2 (08:14→21:00)
[2019-12-15] MEDS ORDERED: PREVNAR 13 VACCINE SYRINGE IM ONE (09:00)
[2019-12-15 14:00] VITALS: BP 151/80
--- NOTE | 2019-12-15 14:38 | IPNPDOC ---
Date Seen The patient was seen on 12/15/19. Progress Note SUBJECTIVE: patient was seen and examined at bedside. Doing well overnight. S/p ERCP yesterday morning. C/o 610 RUQ abdominal pain this morning. Denies n/v. Denies CP. No reports of fevers, chills. Alert and oriented. OBJECTIVE PHYSICAL EXAMINATION: VITAL SIGNS: Please see below. GENERAL: NAD HEENT: PERRLA, EOMI. NO scleral icterus CARDIOVASCULAR: RRR, normal S1, S2. RESPIRATORY: lungs CTAB. ABDOMINAL: RUQ pain to soft palpation 09/22. No rigidity. No rebound tenderness. BS+ EXTREMITIES: normal ROM, no edema BL NEUROLOGICAL: no focal neuro deficits PSYCHOLOGICAL: calm, cooperative LABORATORY DATA, IMAGING STUDIES, MICROBIOLOGY: Please see below. CT Abdo Pelvis wo (12/12/19): IMPRESSION: 1. Severe stool in the colon. 2. No hydronephrosis. 3. Moderate renal atrophy. 4. Circumscribed hypodense lesion in the upper pole of the right. Consistent with benign cyst. No follow-up is necessary. 5. Additional findings as described. US Abdo RUQ (12/13/19) IMPRESSION: 1. Unremarkable gallbladder. 2. Mildly dilated CBD. Distal obstructing stone or lesion cannot be excluded. 3. Echogenic right kidney consistent medical renal disease. 4. Benign simple cyst in the upper pole right kidney. No follow-up is necessary. MRI abdo wo contrast, MRCP (12/13/19) IMPRESSION: 1. No cholelithiasis, choledocholithiasis, or biliary ductal dilation. 2. Mild renal atrophy with numerous renal cysts. DVT prophylaxis ordered?: Yes ASSESSMENT AND PLAN: This 69 yo F with a hx of CKD4, GERD, Hypothyroidism, chronic back pain, anxiety/depression, who presented to [facility] ED with L flank pain, back pain and epigastric pain. She first presented with back, which progressed to abdominal pain after taking her medrol pack for back pain. Admitted for significant transaminitis, sepsis. GI service consulted, s/p ERCP indicative of cholangitis. PROBLEMS: 1. Sepsis: in the context of acute cholangitis. Blood cx positive for E coli. Antibiotic therapy with zosyn. Repeat cultures from 12/14/19 pending, prelim neg. GI service consulted. Discussed today with Dr. Chandrala. S/p ERCP. Cholangitis, choledocolithiasis. Placed CBD stent. Monitor for post-ERCP pancreatitis. Check amylase, lipase in PM. Advance diet as tolerated to FLD. To complete antibiotics for a total 7-10 days (can switch to PO cipro and flagyl on DC) 2. Transaminitis: hepatitis panel negative. MRCP wnl. In context of cholangitis. Downtrending. F/u amylase, lipase. 3. CKD4: pending renal biopsy in [place]. Cr stable. 4. Constipation: lactulose. colace PO BID prn 5. Hypothyroidism: c/w levothyroxine 75 mcg daily 6. Obesity: a1c wnl. 7. Acute on chronic back pain: oxycodone prn 8. Anxiety and depression: reduced seroquel. Hold trazodone. Abx: Zosyn 12/14/19 - Cultures: 12/13/19 (Venous) - E coli positive 12/14/19 (Venous) - pending DVT ppx: SCD DISPOSITION: Home once medically stable. VS, I&O, 24H, [place] Vital Signs/I&O Vital Signs Date Time Temp Pulse Resp B/P (MAP) Pulse Ox O2 Delivery O2 Flow Rate FiO2 12/15/19 11:41 18 12/15/19 08:10 Room Air 12/15/19 06:00 97.6 87 157/97 (117) 98 12/14/19 18:13 2 I&O- Last 24 Hours up to 6 AM 12/15/19 06:00 Intake Total 4130 ml Output Total 200 ml Balance 3930 ml Laboratory Data 24H LABS Laboratory Tests 2 12/15/19 06:44: Immature Granulocyte % (Auto) 0.5, Neutrophils (%) (Auto) 88.3H, Lymphocytes (%) (Auto) 6.6L, Monocytes (%) (Auto) 4.5, Eosinophils (%) (Auto) 0.0, Basophils (%) (Auto) 0.1, Neutrophils # (Auto) 8.1, Lymphocytes # (Auto) 0.6L, Monocytes # (Auto) 0.4, Eosinophils # (Auto) 0.0, Basophils # (Auto) 0.0, Nucleated Red Blood Cells % (auto) 0.0, Anion Gap 6L, Glomerular Filtration Rate 26.6L, Calcium Level 8.5L, Total Bilirubin 2.3#H, Aspartate Amino Transf (AST/SGOT) 150H, Alanine Aminotransferase (ALT/SGPT) 609H, Alkaline Phosphatase 130H, Total Protein 6.1L, Albumin 2.9L, Albumin/Globulin Ratio 0.9L CBC/BMP Laboratory Tests 12/15/19 06:44 Microbiology Microbiology 12/14/19 Blood Culture - Preliminary, Resulted No growth after 24 hours . All specim... 12/14/19 Respiratory Virus Panel (PCR) ([facility]E) - Final, Complete 12/13/19 Blood Culture - Final, Complete Escherichia Coli NETO HIRSCH MD Dec 15, 2019 14:37
[2019-12-15 17:54] LABS: BASO % 0.2 % (0.0-1.0); EOS % 0.2 % (0.0-3.0); HEMATOCRIT 36.2 % (36.0-47.0); HEMOGLOBIN 11.5 g/dl (12.0-15.5); LYMPH # 1.4 10^3/uL (1.5-5.0); LYMPH % 14.2 % (24.0-44.0); MEAN CORPUSCULAR HEMOGLOBIN 32.8 pg (27.0-33.0); MEAN CORPUSCULAR HGB CONC 31.8 g/dl (32.0-36.5); MEAN CORPUSCULAR VOLUME 103.1 fl (80.0-96.0); MONO # 0.8 10^3/uL (0.0-0.8); MONO % 8.5 % (0.0-5.0); NEUTROPHILS # 7.4 10^3/uL (1.5-8.5); NEUTROPHILS % 76.5 % (36.0-66.0); PLATELET COUNT, AUTOMATED 150 10^3/uL (150-450); RED BLOOD COUNT 3.51 10^6/uL (4.00-5.40); WHITE BLOOD COUNT 9.6 10^3/uL (4.0-10.0)
[2019-12-15 18:17] LABS: ALBUMIN 3.1 GM/DL (3.2-5.2); BILIRUBIN,TOTAL 1.9 MG/DL (0.2-1.0); CALCIUM LEVEL 8.2 MG/DL (8.8-10.2); GLOMERULAR FILTRATION RATE 26.3 (>45); POTASSIUM SERUM 4.3 MEQ/L (3.5-5.1); TOTAL PROTEIN 6.5 GM/DL (6.4-8.2)
[2019-12-15] MEDS: QUEtiapine FUMARATE 200 MG TAB PO SCH (21:15)
[2019-12-15 22:00] VITALS: BP 128/81
[2019-12-16] MEDS: PIPERACILLIN/TAZOBACTAM SOD 2.25 GM in D5W MINI-BAG PLUS 50 ML IV SCH ×2 (00:18→05:51)
[2019-12-16] MEDS: MORPHINE 2 MG/ML 1ML VIAL (J2270) IV PRN ×3 (00:18→06:41)
[2019-12-16] MEDS: LR 1,000 ML IV SCH ×2 (00:19→05:51)
[2019-12-16] MEDS: LACTULOSE 20 GM/30 ML SYRUP UD PO SCH ×3 (00:27→05:51)
[2019-12-16] MEDS: LEVOTHYROXINE 75MCG TABLET (0.075MG) PO SCH (05:50)
[2019-12-16 06:00] VITALS: BP 155/89
[2019-12-16 06:49] LABS: BASO % 0.5 % (0.0-1.0); EOS # 0.2 10^3/uL (0.0-0.5); EOS % 2.8 % (0.0-3.0); HEMATOCRIT 34.3 % (36.0-47.0); LYMPH # 1.6 10^3/uL (1.5-5.0); LYMPH % 25.8 % (24.0-44.0); MEAN CORPUSCULAR HEMOGLOBIN 33.4 pg (27.0-33.0); MEAN CORPUSCULAR HGB CONC 32.1 g/dl (32.0-36.5); MEAN CORPUSCULAR VOLUME 104.3 fl (80.0-96.0); MONO # 0.7 10^3/uL (0.0-0.8); MONO % 10.6 % (0.0-5.0); NEUTROPHILS # 3.7 10^3/uL (1.5-8.5); NEUTROPHILS % 60.1 % (36.0-66.0); PLATELET COUNT, AUTOMATED 137 10^3/uL (150-450); RED BLOOD COUNT 3.29 10^6/uL (4.00-5.40); WHITE BLOOD COUNT 6.1 10^3/uL (4.0-10.0)
[2019-12-16 07:12] LABS: ALBUMIN 2.8 GM/DL (3.2-5.2); BILIRUBIN,TOTAL 1.9 MG/DL (0.2-1.0); CREATININE FOR GFR 2.03 MG/DL (0.55-1.30); GLOMERULAR FILTRATION RATE 25.9 (>45); POTASSIUM SERUM 3.8 MEQ/L (3.5-5.1); TOTAL PROTEIN 6.5 GM/DL (6.4-8.2)
[2019-12-16] MEDS: DOCUSATE SODIUM 100 MG CAP PO SCH (09:00)
[2019-12-16] MEDS: OMEPRAZOLE 20 MG CAP PO SCH (09:10)
[2019-12-16] MEDS: oxyCODONE 5MG TAB PO PRN (10:15)
[2019-12-16] MEDS ORDERED: FLAG500T PO (11:02)
[2019-12-16] MEDS ORDERED: DOCU100C16 PO (11:02)
[2019-12-16] MEDS ORDERED: LEVA750T7 PO (11:02)
--- NOTE | 2019-12-16 11:15 | DS.PDOC ---
Discharge Summary General Date of Admission Dec 13, 2019 at 02:03 Date of Discharge 12/16/19 Attending Physician: NETO HIRSCH MD Specialist/Consultants Involve: KRISTIAN GARCIA MD Discharge Summary PROCEDURES PERFORMED DURING STAY: ERCP with stenting of CBD ADMITTING DIAGNOSES: 1. Sepsis 2. Acute cholangitis 3. Transaminitis 4. CKD4 5. Hypothyroidism 6. Obesity 7. Anxiety and depression 8. Acute on chronic back pain DISCHARGE DIAGNOSES: 1. Sepsis 2. Acute cholangitis 3. Transaminitis 4. CKD4 5. Hypothyroidism 6. Obesity 7. Anxiety and depression 8. Acute on chronic back pain COMPLICATIONS/CHIEF COMPLAINT: Abdominal Pain, Transminitis. HISTORY OF PRESENT ILLNESS: This 69 yo F with a hx of CKD4, GERD, Hypothyroidism, chronic back pain, anxiety/depression, who presented to [facility] ED with L flank pain, back pain and epigastric pain. She first presented with back, which progressed to abdominal pain after taking her medrol pack for back pain. She further endorsed worsening nausea but no vomiting. Admitted for significant transaminitis, sepsis. Febrile, Tmax 101.4. GI service consulted, s/p ERCP indicative of cholangitis. HOSPITAL COURSE: Patient was admitted for treatment of sepsis in the context of suspected acute cholangitis. Her blood cultures were positive for e.coli. She was started on zosyn. GI service Dr. Garcia was consulted. Liver US abnormal, showing mild dilation of the CBD. MRCP was performed which showed no acute abnormalities. Patient was taken for ERCP which revealed acute cholangitis. CBD stent was ana josefina. Patient continued to recieve antibiotic therapy with zosyn (total of 3 day), which was later converted to PO therapy with levaquin and metronidazole for an additional 7 days. Repeat blood cultures from 12/13 were preliminary negative after 3 days of growth. She was monitored for post-ERCP pancreatitis. Normal serum amylase and lipase were measured. She tolerated full liquid diet well before discharge. Given that patient was taking several medications that may cause QT prolongation (seroquel, citalopram), she was advised to reduce dosage by half for the duration of antibiotic therapy. QTC checked before DC - wnl. DISCHARGE MEDICATIONS: Please see below. ALLERGIES: Please see below. PHYSICAL EXAMINATION ON DISCHARGE: VITAL SIGNS: Please see below. GENERAL: NAD HEENT: PERRLA, EOMI NECK: supple, normal ROM, no JVD CARDIOVASCULAR EXAMINATION: RRR, normal S1, S2 RESPIRATORY EXAMINATION: Lungs CTAB, no wheeze, no rales ABDOMINAL EXAMINATION: soft, minimal pain to palpation. No masses. No rebound, no rigidity. BS+ EXTREMITIES: no edema, no joint deformity SKIN: warm, dry NEUROLOGICAL EXAMINATION: no focal neuro deficits PSYCHIATRIC EXAMINATION: calm, cooperative. LABORATORY DATA: Please see below. IMAGING: CT Abdo Pelvis wo (12/12/19): IMPRESSION: 1. Severe stool in the colon. 2. No hydronephrosis. 3. Moderate renal atrophy. 4. Circumscribed hypodense lesion in the upper pole of the right. Consistent with benign cyst. No follow-up is necessary. 5. Additional findings as described. US Abdo RUQ (12/13/19) IMPRESSION: 1. Unremarkable gallbladder. 2. Mildly dilated CBD. Distal obstructing stone or lesion cannot be excluded. 3. Echogenic right kidney consistent medical renal disease. 4. Benign simple cyst in the upper pole right kidney. No follow-up is necessary. MRI abdo wo contrast, MRCP (12/13/19) IMPRESSION: 1. No cholelithiasis, choledocholithiasis, or biliary ductal dilation. 2. Mild renal atrophy with numerous renal cysts. PROGNOSIS: favourable ACTIVITY: As tolerated DIET: Low fat DISCHARGE PLAN: DC home with PCP and specialist plan. Antibiotics. GI follow up. DISPOSITION: Home with self care. DISCHARGE INSTRUCTIONS: 1. Complete 7 days of levaquin 750 mg PO daily and flagyl 500 mg q8h 2. Reduce dose of seroquel to 200 mg, citalopram to 20 mg for 7 days. 3. Return to ED if develop abdo pain, vomiting, chest pain, palpitations or fever/chills 4. follow up with PCP within 1-[address] Garcia has provided you with his clinic contact information. Please call with contact info of your GI specialist in [place] so that your medical records can be shared. ITEMS TO FOLLOWUP ON ON OUTPATIENT: 1. Gastroenterology follow up for removal of CBD stent at 3 months (~early Mar 2020). Patient has GI in [place]. DISCHARGE CONDITION: Stable TIME SPENT ON DISCHARGE: Greater than 30 minutes. Vital Signs/I&Os Vital Signs Date Time Temp Pulse Resp B/P (MAP) Pulse Ox O2 Delivery O2 Flow Rate FiO2 12/16/19 10:45 18 Room Air 12/16/19 06:00 97.7 86 155/89 (111) 97 12/14/19 18:13 2 I&O- Last 24 Hours up to 6 AM 12/16/19 06:00 Intake Total 5036 ml Output Total 3125 ml Balance 1911 ml Laboratory Data Labs 24H Laboratory Tests 2 12/15/19 14:50: Immature Granulocyte % (Auto) 0.4, Neutrophils (%) (Auto) 76.5H, Lymphocytes (%) (Auto) 14.2L, Monocytes (%) (Auto) 8.5H, Eosinophils (%) (Auto) 0.2, Basophils (%) (Auto) 0.2, Neutrophils # (Auto) 7.4, Lymphocytes # (Auto) 1.4L, Monocytes # (Auto) 0.8, Eosinophils # (Auto) 0.0, Basophils # (Auto) 0.0, Nucleated Red Bl ood Cells % (auto) 0.0, Anion Gap 7L, Glomerular Filtration Rate 26.3L, Calcium Level 8.2L, Total Bilirubin 1.9H, Aspartate Amino Transf (AST/SGOT) 173H, Alanine Aminotransferase (ALT/SGPT) 608H, Alkaline Phosphatase 125H, Total Protein 6.5, Albumin 3.1L, Albumin/Globulin Ratio 0.9L, Amylase Level 33, Lipase 135 12/16/19 06:22: Immature Granulocyte % (Auto) 0.2, Neutrophils (%) (Auto) 60.1, Lymphocytes (%) (Auto) 25.8, Monocytes (%) (Auto) 10.6H, Eosinophils (%) (Auto) 2.8, Basophils (%) (Auto) 0.5, Neutrophils # (Auto) 3.7, Lymphocytes # (Auto) 1.6, Monocytes # (Auto) 0.7, Eosinophils # (Auto) 0.2, Basophils # (Auto) 0.0, Nucleated Red Blood Cells % (auto) 0.0, Anion Gap 5L, Glomerular Filtration Rate 25.9L, Calcium Level 8.0L, Total Bilirubin 1.9H, Aspartate Amino Transf (AST/SGOT) 134H, Alanine Aminotransferase (ALT/SGPT) 502H, Alkaline Phosphatase 123H, Total Protein 6.5, Albumin 2.8L, Albumin/Globulin Ratio 0.8L CBC/BMP Laboratory Tests 12/15/19 14:50 12/16/19 06:22 Microbiology Microbiology 12/14/19 Blood Culture - Preliminary, Resulted No Growth after 48 hours. All Specime... 12/14/19 Respiratory Virus Panel (PCR) ([facility]NDEE) - Final, Complete 12/13/19 Blood Culture - Final, Complete Escherichia Coli Discharge Medications Scheduled Citalopram Hydrobromide (Citalopram HBr) 40 Mg Tablet, 20 MG PO DAILY Clonazepam (Clonazepam) 0.5 Mg Tab.rapdis, 0.5 MG PO TID, (Reported) Docusate Sodium (Docusate Sodium) 100 Mg Capsule, 100 MG PO BID Levofloxacin (Levaquin) 750 Mg Tablet, 750 MG PO DAILY Levothyroxine Sodium (Levothyroxine Sodium) 75 Mcg Tablet, 75 MCG PO DAILY, (Reported) Methylprednisolone (Methylprednisolone) 4 Mg Tab.ds.pk, 4 MG PO ASDIRECTED, (Reported) Metronidazole (Flagyl) 500 Mg Tablet, 500 MG PO Q8H FOR 10 DAYS Omeprazole (Omeprazole) 40 Mg Capsule.dr, 40 MG PO DAILY, (Reported) Quetiapine Fumarate (Quetiapine Fumarate) 200 Mg Tablet, 200 MG PO QPM Trazodone HCl (Trazodone HCl) 100 Mg Tablet, 200 MG PO QPM, (Reported) Allergies Coded Allergies: No Known Allergies (Unverified , 12/12/19) NETO HIRSCH MD Dec 16, 2019 11:14
[2019-12-16] MEDS ORDERED: CITA40TA4 PO (11:31)
[2019-12-16] MEDS ORDERED: QUET200T2 PO (11:31)
--- NOTE | 2019-12-23 11:26 | ROOR ---
Patient Name: Yandy Hastings Procedure Date: 12/14/2019 4:43 PM Date of : 1950 Age: 69 Room: Main OR Gender: Female Note Status: Finalized Procedure: ERCP Indications: For therapy of ascending cholangitis Providers: Anurag Garcia MD Referring MD: 2. Inpatient 2. Inpatient, Nhi Lainez Md Requesting Provider: Medicines: Monitored Anesthesia Care Complications: No immediate complications. Procedure: Pre-Anesthesia Assessment: - Prior to the procedure, a History and Physical was performed, and patient medications and allergies were reviewed. The patient is competent. The risks and benefits of the procedure and the sedation options and risks were discussed with the patient. All questions were answered and informed consent was obtained. Patient identification and proposed procedure were verified by the physician, the nurse and the anesthesiologist in the procedure room. Mental Status Examination: alert and oriented. Airway Examination: normal oropharyngeal airway and neck mobility. Respiratory Examination: clear to auscultation. CV Examination: normal. Prophylactic Antibiotics: The patient does not require prophylactic antibiotics. Prior Anticoagulants: The patient has taken no previous anticoagulant or antiplatelet agents. ASA Grade Assessment: III - A patient with severe systemic disease. After reviewing the risks and benefits, the patient was deemed in satisfactory condition to undergo the procedure. The anesthesia plan was to use monitored anesthesia care (MAC). Immediately prior to administration of medications, the patient was re-assessed for adequacy to receive sedatives. The heart rate, respiratory rate, oxygen saturations, blood pressure, adequacy of pulmonary ventilation, and response to care were monitored throughout the procedure. The physical status of the patient was re-assessed after the procedure. The Duodenoscope was introduced through the mouth, and advanced to the duodenum and used to inject contrast into the bile duct. The ERCP was accomplished without difficulty. The patient tolerated the procedure well. Findings: The scout professional sports film was normal. The esophagus was successfully intubated under direct vision without detailed examination of the pharynx, larynx, and associated structures, and upper GI tract. The upper GI tract was grossly normal. Pus was emerging from the major papilla. Sludge was emerging from the major papilla. A 0.035 inch x 260 cm straight Hydra Jagwire was passed into the biliary tree. The short-nosed traction sphincterotome was passed over the guidewire and the bile duct was then deeply cannulated. Contrast was injected. I personally interpreted the bile duct images. Ductal flow of contrast was adequate. Image quality was adequate. Contrast extended to the entire biliary tree. The lower third of the main bile duct contained filling defect(s) thought to be a stone and sludge. Biliary sphincterotomy was made with a monofilament traction (standard) sphincterotome using ERBE electrocautery. There was no post-sphincterotomy bleeding. The biliary tree was swept with a 9 mm balloon starting at the bifurcation. Sludge was swept from the duct. All stones were removed. One 8.5 Fr by 7 cm plastic stent with a single external flap and a single internal flap was placed into the common bile duct. Bile flowed through the stent. The stent was in good position. Impression: - Pus was seen in the major papilla. - Sludge was seen in the major papilla. - A filling defect consistent with a stone and sludge was seen on the cholangiogram. - Choledocholithiasis was found. Complete removal was accomplished by biliary sphincterotomy and balloon extraction. - A biliary sphincterotomy was performed. - The biliary tree was swept. - One plastic stent was placed into the common bile duct. Recommendation: - The patient will be observed post-procedure, until all discharge criteria are met. - Patient has a contact number available for emergencies. The signs and symptoms of potential delayed complications were discussed with the patient. Return to normal activities tomorrow. Written discharge instructions were provided to the patient. - Avoid aspirin and nonsteroidal anti-inflammatory medicines for 3 days. - Clear liquid diet for 1 day, then advance as tolerated to low fat diet. - Consider referral to surgeon for Cholecystectomy. - Observe patient's clinical course. - Repeat ERCP in 3 months to remove stent. - Return to GI clinic in [facility] (address [address], [address], [place], [facility] [place]) in 4 -- 6 weeks. Please call GI clinic @ [phone] for apppointment date and time. - Return to primary care physician. Anurag Garcia MD 12/14/2019 6:14:16 PM Number of Addenda: 0 Note Initiated On: 12/14/2019 4:43 PM Estimated Blood Loss: Estimated blood loss was minimal.
--- NOTE | 2019-12-24 16:29 | ECGEPIP ---
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
--- NOTE | 2020-01-05 12:22 | ECGEPIP ---
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
--- NOTE | 2020-01-12 11:41 | REP ---
ERCP CLINICAL: Chronic upper abdominal pain. TECHNIQUE: Intraoperative fluoroscopic images using portable C-arm technique from ERCP examination. FINDINGS: Images demonstrate normal common bile duct, cystic duct, gallbladder, and intrahepatic biliary duct. No obvious filling defects or ductal dilatation appreciated. Total fluoroscopic time 29 seconds. IMPRESSION: Relatively normal appearance to the gallbladder and biliary system by ERCP. MTDD
== END 2019-12-16 14:05 | disposition home or self-care (01) | DRG 872 ==
LOC: M ED 22:47 → M ED INP 12-13 02:03 → ENRESERVTM 12-13 02:45 → ENRESERVDT 12-13 02:45 → M MS5PR 12-13 03:02
PROVIDERS: ADMIT Internal Medicine; ATTEND Family Medicine
PROC: 0F798DZ Dilation of Common Bile Duct with Intraluminal Device, Via Natural or Artificial Opening Endoscopic (ICD-10-PCS; 2019-12-14)
PROC: 0FC98ZZ Extirpation of Matter from Common Bile Duct, Via Natural or Artificial Opening Endoscopic (ICD-10-PCS; principal; 2019-12-14 12:30)
DX: A41.51 Sepsis due to Escherichia coli [E. coli] (principal); K80.31 Calculus of bile duct with cholangitis, unspecified, with obstruction; N18.4 Chronic kidney disease, stage 4 (severe); E03.9 Hypothyroidism, unspecified; M54.9 Dorsalgia, unspecified; E78.5 Hyperlipidemia, unspecified; K21.9 Gastro-esophageal reflux disease without esophagitis; K59.00 Constipation, unspecified; F41.9 Anxiety disorder, unspecified; F32.9 Major depressive disorder, single episode, unspecified; N28.1 Cyst of kidney, acquired; E66.9 Obesity, unspecified; Z79.899 Other long term (current) drug therapy; Z68.35 Body mass index [BMI] 35.0-35.9, adult; R74.0 Nonspecific elevation of levels of transaminase and lactic acid dehydrogenase [LDH]

== ENCOUNTER → 2020-09-16 | Outpatient (CLI) | payer MEDICARE, OTHER ==
[~2020-09-16] MED LIST changes: +METH-1165 PO; -METH750T2 PO
--- NOTE | 2020-09-20 00:19 | ECWPNPC ---
PATIENT NAME: HOPE AGUILAR : 1950 GENDER: FEMALE VISIT DATE: 09/16/2020 DISCHARGE DATE: 09/16/20 1000 VISIT LOCKED DATE TIME: PHYSICIAN: ADAM MCQUEEN RESOURCE: ADAM MCQUEEN REASON FOR APPOINTMENT 1. BILATERAL SIJ HISTORY OF PRESENT ILLNESS DEPRESSION SCREENING: PHQ-2 (2015 EDITION) LITTLE INTEREST OR PLEASURE IN DOING THINGS?NOT AT ALL FEELING DOWN, DEPRESSED, OR HOPELESS?NOT AT ALL TOTAL SCORE0 GENERAL: HPI 69-YEAR-OLD FEMALE IN FOR INITIAL PAIN CONSULT REGARDING BILATERAL SACROILIITIS. PATIENT WAS SEEN BY [facility] FOR THIS AND REFERRED TO US FOR BILATERAL SACROILIAC JOINT BLOCKS.PATIENT ADMITS THIS PAIN HAS BEEN PRESENT FOR A FEW YEARS. SHE FURTHER STATES THAT SHE HAS BEEN ON HYDROCODONE IN THE PAST AND THAT IT HELPED TO ALLEVIATE HER SYMPTOMS.. - - - -. FALL RISK SCREENING: SCREENING TWO FALLS REPORTED IN THE LAST YEAR WITHOUT INJURY. PAIN SCREENING: PATIENT HAS A COMPLAINT OF ACUTE OR CHRONIC PAIN :YES LOCATION OF PAIN:LOW BACK, LEFT HIP, RIGHT HIP INTENSITY OF PAIN (SCALE OF 1 TO 10):7 AVERAGE 7 WHAT DOES YOUR PAIN FEEL LIKE:ACHING, INTERMITTENT, STABBING, THROBBING, OTHER DULL ACHE DURATION:INTERMITTENT PAIN IS INCREASED BY:ACTIVITIES, PROLONGED STANDING PAIN IS DECREASED BY:USE OF PAIN MEDICATIONS, SITTING HYDROCODONE-ACETAMINOPHEN 10/325 HAS HELPED IN THE PAST. NURSING NOTE: - - - -. PAIN CENTER INTAKE QUESTIONS: DO YOU HAVE A HISTORY OF MRSA? :NO DO YOU TAKE A BLOOD THINNERS? :NO DO YOU HAVE ANY BLEEDING DISORDERS? :NO ANY NEW NUMBNESS OR WEAKNESS IN YOUR LEGS OR ARMS? :YES WEAKNESS BILATERAL LEGS ANY PACEMAKER,DEFIBRILLATOR, OR DORSAL COLUMN STIMULATOR? :NO DO YOU HAVE ANY RASHES OR OPEN SORES? :NO ARE YOU ALLERGIC TO IV DYE? :NO ARE YOU DIABETIC? :NO ANY NEW PROBLEMS WITH YOUR MEDICATIONS? :NO HAVE YOU RECEIVED A VACCINE IN THE PAST 30 DAYS? :NO SECOND COVID VACCINATION 07/17/2020 DO YOU PLAN TO RECEIVE A VACCINE IN THE NEXT 21 DAYS? :NO DO YOU NEED ANY PRESCRIPTION? :NO DO YOU TAKE ANY IMMUNOSUPPRESSIVE MEDICATIONS? :NO PREDNISONE PACK TAKEN AROUND AUG, 2020 IS THERE A CHANCE YOU COULD BE ? :NO ARE YOU BREAST FEEDING? :NO CURRENT MEDICATIONS TAKING ATORVASTATIN CALCIUM 40 MG TABLET 1 TABLET ORALLY ONCE A DAY TAKING CALCITRIOL 0.25 MCG CAPSULE 1 CAPSULE ORALLY ONCE A DAY TAKING CITALOPRAM HYDROBROMIDE 40 MG TABLET 0.5 TABLET ORALLY ONCE A DAY TAKING CLONAZEPAM 0.5 MG TABLET 1 TABLET AT BEDTIME ORALLY THREE TIMES DAILY TAKING LEVOTHYROXINE SODIUM 75 MCG TABLET 1 TABLET IN THE MORNING ON AN EMPTY STOMACH ORALLY ONCE A DAY TAKING NORCO 10-325MG ORALLY DIRECTED, NOTES: [facility] TAKING QUETIAPINE FUMARATE 400 MG TABLET 1 TABLET AT BEDTIME ORALLY ONCE A DAY TAKING TRAZODONE HCL 300 MG TABLET 1 TABLET AT BEDTIME ORALLY ONCE A DAY TAKING VITAMIN D 50 MCG (1999) TABLET 1 TABLET ORALLY ONCE A DAY MEDICATION LIST REVIEWED AND RECONCILED WITH THE PATIENT PAST MEDICAL HISTORY ANXIETY DEPRESSION CHRONIC KIDNEY DISEASE, STAGE 4 HYPERCHOLESTEROLEMIA HYPOTHYROIDISM ALLERGIES N.K.D.A. SURGICAL HISTORY HYSTERECTOMY SINUS SURGERY X3 CHOLECYSTECTOMY 2019 FAMILY HISTORY FATHER: MOTHER: SIBLINGS: DIAGNOSED WITH DIABETES 6 BROTHER(S) , 5 SISTER(S) . 1 SON(S) , 1 DAUGHTER(S) - HEALTHY. SISTER HAS DIABETES MELLITUS, GRANDFATHER HAS MALIGNANT NEOPLASM OF COLON, SISTER HAS THROAT CANCER. SOCIAL HISTORY GENERAL: TOBACCO USE ARE YOU A:CURRENT SMOKER ARE YOU INTERESTED IN QUITTING?NOT READY TO QUIT COUNSELED THE PATIENT ON SMOKING EFFECTS, EDUCATION [id number]/04/2021 HOW MANY CIGARETTES A DAY DO YOU SMOKE?11-20 LATEX QUESTIONNAIRE LATEX ALLERGY : HAVE YOU EVER DEVELOPED ANY TYPE OF REACTION AFTER HANDLING LATEX PRODUCTS SUCH RUBBER GLOVES, CONDOMS, DIAPHRAGMS, BALLOONS, SOCKS, OR UNDERWEAR?NO LATEX ALLERGY : HAVE YOU EVER DEVELOPED ANY TYPE OF REACTION DURING OR AFTER DENTAL APPOINTMENT, VAGINAL/RECTAL EXAMINATION, SURGICAL PROCEDURE, OR ANY OTHER EXPOSURE?NO LATEX RISK : HAVE YOU EVER HAD ANY DIFFICULTY BREATHING OR HIVES AFTER EATING OR HANDLING ANY FRUITS, OR VEGETABLES; SUCH KIWI, BANANAS, STONE FRUITS, OR CHESTNUTSNO LATEX RISK : ARE YOU FREQUENTLY EXPOSED TO LATEX PRODUCTS IN YOUR OCCUPATION?NO DATE ASKED : 09/16/2020 ALCOHOL USE: NO. RECREATIONAL DRUG USE DRUG USE?NO LANGUAGE LANGUAGES SPOKEN:CZECH EDUCATION LEVEL OF EDUCATION:NOT FINISHED HIGH SCHOOL LEARNING BARRIERS / SPECIAL NEEDS BARRIERS TO LEARNING?NO HEARING IMPAIRED?YES :HEARING AIDES VISION IMPAIRED?YES :CORRECTIVE LENSES COGNITIVELY IMPAIRED?NO READINESS TO LEARN?YES LEARNING PREFERENCES?YES :BOOKLETS, HANDOUTS LEARNING CAPABILITIES PRESENT?YES EMOTIONAL BARRIERS?YES ANXIETY AND DEPRESSION SPECIAL DEVICES?NO TECHNICAL SERVICES CONSULTANT NEEDED?NO HOSPITALIZATION/MAJOR DIAGNOSTIC PROCEDURE SURGERY RELATED REVIEW OF SYSTEMS CONSTITUTIONAL: ANY RECENT FEVER NO . CHILLS NO . WEIGHT CHANGE OF UNKNOWN REASONS NO . MUSCULOSKELETAL: ANY UNUSUAL JOINT PAIN OR SWELLING NOT MENTIONED NO . SYSTEMIC LUPUS NO . ANY NEUROMUSCULAR DISORDER NOT MENTIONED NO . LYME DISEASE NO . GASTROENTEROLOGY: ANY NEW CHANGE IN BOWEL CONTROL? NO . HISTORY OF LIVER DISORDER NOT MENTIONED NO . HISTORY OF UNUSUAL ABDOMINAL PAIN OR CRAMPING NOT MENTIONED NO . NO CONSTIPATION. GENITOURINARY: ANY NEW CHANGE IN BLADDER CONTROL? NO . ANY RENAL/KIDNEY CONDITON NOT MENTIONED NO . NEUROLOGY: HISTORY OF TBI NOT MENTIONED NO . OTHER NEW NUMBNESS OR PAIN PATTERNS NOT MENTIONED NO . NEW ONSET DIZZINESS OR NEUROLOGICAL CHANGES NOT MENTIONED NO . HISTORY OF SEVERE HEADACHES NOT MENTIONED NO . HISTORY OF STROKE OR NEUROLOGICAL DISORDER NOT MENTIONED NO . CARDIOLOGY: HEART SURGERY NO . CONGESTIVE HEART FAILURE/FLUID OVERLOAD NOT MENTIONED NO . HISTORY OF CHEST PAIN,IRREGULAR HEART BEAT NOT MENTIONED NO . RESPIRATORY: SHORTNESS OF BREATH ON EXERTION, WHEEZES, UNUSUAL COUGH NOT MENTIONED NO . ENDOCRINOLOGY: ADRENAL GLAND OR THYROID DISORDERS NOT MENTIONED NO . UNUSUAL URINATION, DIZZINESS OR LETHARGY NOT MENTIONED NO . VITAL SIGNS WT 208.6 LBS, HT 55 IN, BMI 48.48 INDEX, BP 116/69 MM HG, HR 87 /MIN, RR 18 /MIN, TEMP 98.6 F, OXYGEN SAT % 98%, SAFE IN ENV? (Y/N) YES, NA INITIALS AW 0846, REVIEWED BY: MIKAYLA NEFF MA. EXAMINATION GENERAL EXAMINATION: GENERALNO ACUTE DISTRESS, WELL NOURISHED AND HYDRATED. PSYCHAPPROPRIATE MOOD AND AFFECT . LUNGS:CLEAR TO AUSCULTATION BILATERALLY, NO WHEEZES, RHONCHI, RALES. HEART:NO MURMURS, REGULAR RATE AND RHYTHM. BACK:POINT TENDER BILATERAL SIJ, POSITIVE VERONICA'S TEST BILATERALLY. 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 GIVEN PRESENTING SYMPTOMS AND RESULTS OF PHYSICAL EXAMINATION RECOMMEND BILATERAL SACROILIAC JOINT BLOCKS, STARTING HYDROCODONE 10/325 MG 1 TABLET DAILY NEEDED FOR PAIN, AND FOLLOW-UP POST PROCEDURE. PATIENT HAS EXPRESSED UNDERSTANDING OF AND WAS IN AGREEMENT WITH TREATMENT PLAN. GIVEN TIME TO ASK QUESTIONS AND EXPRESS CONCERNS. ISTOP REGISTRY REVIEWED AND DEMONSTRATES COMPLLIANCE. (REF # [id number]) BRINGS IN MEDICATIONS WHICH IS APPROPRIATE FOR WHAT WAS DISPENSED. RECENT URINE TOXICOLOGY REVIEWED. NO UNAUTHORIZED MEDICATIONS. NO ILLICIT SUBSTANCES AND PRESCRIBED MEDICATIONS WERE PRESENT. CLINICAL NOTES: HYDROCODONE AND ACETAMINOPHEN INFORMATION PRINTED AND PROVIDED TO PATIENT. PATIENT VERBALIZED AN UNDERSTANDING. DEA NEFF MA. USE OF OPIATES FOR THERAPEUTIC PURPOSES LAB: URINE TEST GROUP DEA NEFF 09/16/2020 9:48:51 AM > LAST DOSE: OXYCODONE 09/12/2020; TRAZADONE 09/15/2020 AT 9PM; CLONAZEPAM 09/16/2020 AT 7AM PROCEDURE CODES FA211 ESTABILISHED PATIENT [facility] CHARGE DISPOSITION & COMMUNICATION FOLLOW UP POST PROCEDURE (REASON: BILATERAL SACROILIAC JOINT BLOCK ) ELECTRONICALLY SIGNED BY MILVIA SARABIA ON 09/19/2020 AT 08:00 AM EDT DISCLAIMER : THIS IS A VISIT SUMMARY EXTRACTED FROM THE [employer] CHART. IT IS NOT A COPY OF THE [employer] PROGRESS NOTE. EVELIA
== END ==
LOC: M PAIN 08:30
PROVIDERS: ATTEND Family Medicine
DX: M46.1 Sacroiliitis, not elsewhere classified (principal); F41.9 Anxiety disorder, unspecified; N18.4 Chronic kidney disease, stage 4 (severe); E78.00 Pure hypercholesterolemia, unspecified; E03.9 Hypothyroidism, unspecified; F17.210 Nicotine dependence, cigarettes, uncomplicated; Z79.891 Long term (current) use of opiate analgesic; Z79.899 Other long term (current) drug therapy

== ENCOUNTER → 2020-10-13 | Outpatient (CLI) | payer MEDICARE, OTHER | LOC: M LABSMTC 13:19 | PROVIDERS: ATTEND Anesthesiology | DX: Z01.812 Encounter for preprocedural laboratory examination (principal); Z20.822 Contact with and (suspected) exposure to COVID-19 ==

== ENCOUNTER → 2020-10-18 | Outpatient (CLI) | payer MEDICARE, OTHER ==
[~2020-10-18] MED LIST changes: +BUPIVACAINE HCL 0.25% 30ML VIAL As Ordered ONE; +ISOVUE-M 300 61% 15ML VIAL As Ordered ONE; +LIDOCAINE 1% SDV 30ML VIAL As Ordered ONE; +NORCO, ANEXSIA 5/325MG TABLET (HYDROcodone/ACETAMINOPHEN) As Ordered ONE; +TRIAMCINOLONE ACETONIDE SUSP 40 MG/ML VIAL (J3301) As Ordered ONE; +diazePAM 5MG TABLET As Ordered ONE
--- NOTE | 2020-10-18 10:58 | REP ---
INDICATION: BILATERAL SACROILIAC JOINT BLOCK. COMPARISON: None. TECHNIQUE: Two C-arm views of sacroiliac joints performed bilaterally. FINDINGS: A needle is seen overlying each sacroiliac joint bilaterally. IMPRESSION: 22.2 seconds fluoroscopy time utilized. <Electronically signed by Russ Brooks > 10/18/20 1055
--- NOTE | 2020-10-19 02:40 | ECWPNPC ---
PATIENT NAME: HOPE AGUILAR : 1950 GENDER: FEMALE VISIT DATE: 10/18/2020 DISCHARGE DATE: 10/18/20 1046 VISIT LOCKED DATE TIME: PHYSICIAN: SHANKAR PALACIOS MD RESOURCE: SHANKAR PALACIOS MD REASON FOR APPOINTMENT 1. BILATERAL SACROILIAC JOINT BLOCK HISTORY OF PRESENT ILLNESS GENERAL: -. FALL RISK SCREENING: SCREENING : MULTIPLE FALLS REPORTED IN THE LAST YEAR; NO INJURY. PAIN SCREENING: PATIENT HAS A COMPLAINT OF ACUTE OR CHRONIC PAIN :YES LOCATION OF PAIN:LOW BACK, LEFT HIP, RIGHT HIP, LEG(S) INTENSITY OF PAIN (SCALE OF 1 TO 10):7 WHAT DOES YOUR PAIN FEEL LIKE:STABBING, THROBBING DURATION:INTERMITTENT PAIN IS INCREASED BY:ACTIVITIES, OTHERS BENDING, LIFTING, TWISTING, WALKING PAIN IS DECREASED BY:USE OF PAIN MEDICATIONS, SITTING, OTHERS HEATING PAD, LUMBAR SUPPORT CHAIR NURSING NOTE: -. PAIN CENTER INTAKE QUESTIONS: DO YOU HAVE A HISTORY OF MRSA? :NO DO YOU TAKE A BLOOD THINNERS? :NO DO YOU HAVE ANY BLEEDING DISORDERS? :NO ANY NEW NUMBNESS OR WEAKNESS IN YOUR LEGS OR ARMS? :YES WEAKNESS TO BILAT LEGS CONTINUES ANY PACEMAKER,DEFIBRILLATOR, OR DORSAL COLUMN STIMULATOR? :NO DO YOU HAVE ANY RASHES OR OPEN SORES? :NO ARE YOU ALLERGIC TO IV DYE? :NO ARE YOU DIABETIC? :NO ANY NEW PROBLEMS WITH YOUR MEDICATIONS? :NO HAVE YOU RECEIVED A VACCINE IN THE PAST 30 DAYS? :NO DO YOU PLAN TO RECEIVE A VACCINE IN THE NEXT 21 DAYS? :NO DO YOU TAKE ANY IMMUNOSUPPRESSIVE MEDICATIONS? :NO ANY HISTORY OF SEIZURES? :NO ANY HISTORY OF CARDIAC ISSUES OR EVENTS? :NO DO YOU HAVE ANY KIDNEY OR LIVER DISEASE? :YES SEVERE STAGE 4 KIDNEY DISEASE DO YOU HAVE SLEEP APNEA? :NO ANY RECENT HEAD INJURY? :NO DO YOU HAVE ANY NEW INFECTIONS? :NO IS THERE A CHANCE YOU COULD BE ? :NO ARE YOU BREAST FEEDING? :NO WHEN DID YOU LAST EAT? : 10/17 2029 WHEN DID YOU LAST DRINK? : 10/18 544 WHAT DID YOU LAST DRINK? : [employer] NAME OF PERSON DRIVING YOU HOME? : - NAKITA DO YOU HAVE ANY OTHER QUESTIONS OR CONCERNS? : - CURRENT MEDICATIONS TAKING ATORVASTATIN CALCIUM 40 MG TABLET 1 TABLET ORALLY ONCE A DAY TAKING CALCITRIOL 0.25 MCG CAPSULE 1 CAPSULE ORALLY ONCE A DAY TAKING CITALOPRAM HYDROBROMIDE 40 MG TABLET 0.5 TABLET ORALLY ONCE A DAY TAKING CLONAZEPAM 0.5 MG TABLET 1 TABLET AT BEDTIME ORALLY THREE TIMES DAILY TAKING LEVOTHYROXINE SODIUM 75 MCG TABLET 1 TABLET IN THE MORNING ON AN EMPTY STOMACH ORALLY ONCE A DAY, NOTES: 10/18 544 TAKING QUETIAPINE FUMARATE 400 MG TABLET 1 TABLET AT BEDTIME ORALLY ONCE A DAY, NOTES: 10/17 2029 TAKING TRAZODONE HCL 300 MG TABLET 1 TABLET AT BEDTIME ORALLY ONCE A DAY, NOTES: 10/17 2029 TAKING VITAMIN D 50 MCG (1999) TABLET 1 TABLET ORALLY ONCE A DAY TAKING HYDROCODONE-ACETAMINOPHEN 10-325 MG TABLET 1 TABLET NEEDED ORALLY DAILY, NOTES: 10/17 929 NOT-TAKING NORCO 10-325MG ORALLY DIRECTED, NOTES: [facility] MEDICATION LIST REVIEWED AND RECONCILED WITH THE PATIENT PAST MEDICAL HISTORY ANXIETY DEPRESSION CHRONIC KIDNEY DISEASE, STAGE 4 HYPERCHOLESTEROLEMIA HYPOTHYROIDISM ALLERGIES N.K.D.A. SOCIAL HISTORY GENERAL: TOBACCO USE ARE YOU A:CURRENT SMOKER ARE YOU INTERESTED IN QUITTING?NOT READY TO QUIT COUNSELED THE PATIENT ON SMOKING EFFECTS, EDUCATION [id number]/04/2021 HOW MANY CIGARETTES A DAY DO YOU SMOKE?11-20 LATEX QUESTIONNAIRE LATEX ALLERGY : HAVE YOU EVER DEVELOPED ANY TYPE OF REACTION AFTER HANDLING LATEX PRODUCTS SUCH RUBBER GLOVES, CONDOMS, DIAPHRAGMS, BALLOONS, SOCKS, OR UNDERWEAR?NO LATEX ALLERGY : HAVE YOU EVER DEVELOPED ANY TYPE OF REACTION DURING OR AFTER DENTAL APPOINTMENT, VAGINAL/RECTAL EXAMINATION, SURGICAL PROCEDURE, OR ANY OTHER EXPOSURE?NO LATEX RISK : HAVE YOU EVER HAD ANY DIFFICULTY BREATHING OR HIVES AFTER EATING OR HANDLING ANY FRUITS, OR VEGETABLES; SUCH KIWI, BANANAS, STONE FRUITS, OR CHESTNUTSNO LATEX RISK : DO YOU HAVE A PREVIOUS PERSONAL HISTORY OF MORE THAN NINE SURGERIES, SPINA BIFIDA, OR REPEATED CATHERIZATIONS? NO LATEX RISK : ARE YOU FREQUENTLY EXPOSED TO LATEX PRODUCTS IN YOUR OCCUPATION?NO DATE ASKED : 09/16/2020 ALCOHOL USE: NO. RECREATIONAL DRUG USE DRUG USE?NO LANGUAGE LANGUAGES SPOKEN:IRISH EDUCATION LEVEL OF EDUCATION:NOT FINISHED HIGH SCHOOL LEARNING BARRIERS / SPECIAL NEEDS CHANGE FROM LAST VISIT?NO BARRIERS TO LEARNING?NO HEARING IMPAIRED?YES :HEARING AIDES VISION IMPAIRED?YES :CORRECTIVE LENSES COGNITIVELY IMPAIRED?NO READINESS TO LEARN?YES LEARNING PREFERENCES?YES :BOOKLETS, HANDOUTS LEARNING CAPABILITIES PRESENT?YES EMOTIONAL BARRIERS?YES ANXIETY AND DEPRESSION SPECIAL DEVICES?NO BANK CASHIER NEEDED?NO - HAS THE PATIENT BEEN EDUCATED REGARDING HIS/HER PLAN OF CARE?YES HAS THE PATIENT BEEN EDUCATED REGARDING PAIN, THE RISK FOR PAIN, THE IMPORTANCE OF EFFECTIVE PAIN MANAGEMENT, AND THE PAIN ASSESSMENT PROCESS?YES ADVANCE DIRECTIVE ADVANCE DIRECTIVE DISCUSSED WITH PATIENT:YES PATIENT STATES SHE [id number] [phone] VITAL SIGNS WT 211.4 LBS, HT 55 IN, BMI 49.13 INDEX, BP 112/59 MM HG, HR 87 /MIN, RR 18 /MIN, TEMP 96.5 F, OXYGEN SAT % 98%, SAFE IN ENV? (Y/N) Y, NA INITIALS SC 08:38, REVIEWED BY: Lily ROSADO RN. EXAMINATION GENERAL: A HISTORY AND PHYSICAL EXAM ON THE PATIENT WAS DONE ON 09/16/2020(DATE OF ORIGINAL ASSESSMENT) IN PREPARATION OF SURGERY/PROCEDURE. I HAVE NOW REASSESSED THIS PATIENT'S HEALTH STATUS AND PERFORMED AN UPDATED EXAM TODAY. ALL CHANGES IN THE PATIENT'S HISTORY, PHYSICAL EXAM, PRE-EXISTING CONDITONS, AND INDICATIONS/CONTRAINDICATIONS TO THE PLANNED PROCEDURE AND ANESTHESIA ARE DOCUMENTED AND EVALUATED BELOW. I ATTEST TO THE ADEQUACY AND APPROPRIATENESS OF MY ASSESSMENT, AND CONFIRM THE NECESSITY FOR THE PLANNED PROCEDURE. THE PATIENT IS ALERT, ORIENTED TIMES THREE AND COOPERATIVE. LUNGS ARE CLEAR TO AUSCULTATION. HEART SHOWS REGULAR RHYTHM, NO MURMURS AND NO GALLOPS. 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 LUC ROSADO 10/18/2020 8:57:31 AM > ADMINISTERED MEDICATION: VALIUM TAB 5MG ORALLY (DIAZEPAM)MELANIE CONNER 10/18/2020 8:54:09 AM > VERIFIED. LUC ROSADO 10/18/2020 8:58:11 AM > ADMINISTERED SALINE LOCKLUC ROSADO 10/18/2020 9:12:54 AM > SL STARTED ON 1ST ATTEMPT WITH #22G IN LEFT HAND WITHOUT INCIDENT. CATHETER FLUSHED EASILY WITHOUT RESISTANCE OR SWELLING. PT. TOLERATED WELL. OTHERS NOTES: 10/13/201814 PAT COMPLETED. Tamra CONNER RN. PROCEDURES PAIN NURSING RECORD PROCEDURE IN ROOM 0950, PHYSICIAN IN ROOM 1008, START 1012, FINISH 1017, PHYSICIAN OUT OF ROOM 1019, OUT OF ROOM 1024, ECG NORMAL SINUS, PATIENT SHIELDED YES, SAFETY STRAP YES, PREP CHLOROPREP Lily ROSADO RN, DRESSING TEGADERM DR. PALACIOS, LOC: ALONZOLUC 10/18/2020 9:25:37 AM > 1. ALERT, ORIENTED ALONZOLUC 10/18/2020 10:38:28 AM > 1. ALERT, ORIENTED RESP: HERLINDA ROSADOITA 10/18/2020 9:25:41 AM > 1. REGULAR, NO DYSPNEA ALONZOLUC 10/18/2020 10:38:33 AM > 1. REGULAR, NO DYSPNEA COLOR: HERLINDA ROSADOITA 10/18/2020 9:25:49 AM > 1. PINK ALONZOLUC 10/18/2020 10:38:39 AM > 1. PINK SKIN: ALONZOLUC 10/18/2020 9:25:53 AM > 1. WARM, DRY ALONZOLUC 10/18/2020 10:38:47 AM > 1. WARM, DRY POSITION: ALONZOLUC 10/18/2020 9:25:58 AM > 2. SUPINE ALONZOLUC 10/18/2020 9:52:20 AM > 1. PRONE ALONZOLUC 10/18/2020 10:38:56 AM > 5. SITTING VITALS: ALONZOLUC 10/18/2020 9:15:03 AM > 120/56,77,16,95% ALONZOLUC 10/18/2020 9:27:10 AM > 115/59,76,18,96% GLENN GARZA 10/18/2020 9:32:52 AM > HR 76 O297% BP 116/65 ALNOZOLUC 10/18/2020 9:52:33 AM > 147/64,79,16,95% ALONZOLUC 10/18/2020 9:57:43 AM > 163/69,80,18,98% [facility]ON[facility] CLAIRE 10/18/2020 10:12:29 AM > 156/68,83,18,97% ALONZOLUC 10/18/2020 10:21:32 AM > 167/78,79,16,96% ALONZOLUC 10/18/2020 10:39:04 AM > 123/63,74,18,98% COMPLETION OF PROCEDURE APPOINTMENT: POST PAIN 7, DRESSING SITE DRY AND INTACT, IV DISCONTINUED, SITE CLEAR, CATHETER INTACT, GAIT WHEELCHAIR, TEACHING COMPLETED, PATIENT ACKNOWLEDGES UNDERSTANDING YES, PROCEDURE APPOINTMENT COMPLETED AT 1045 BY: Lily ROSADO RN PN SI PRE PROCEDURE DIAGNOSIS SACROILIITIS, SACROILIAC JOINT DYSFUNCTION POST PROCEDURE DIAGNOSIS SACROILIITIS, SACROILIAC JOINT DYSFUNCTION PROCEDURE BILATERAL SACROILIAC JOINT BLOCK SURGEON DR. SHANKAR PALACIOS BAR TURNER NONE ANESTHESIA LOCAL PRE PROCEDURE NOTE THE PATIENT WITH HISTORY OF CHRONIC LOW BACK PAIN. I EVALUATED THE PATIENT AND REVIEWED THE CHART. I WENT OVER THE RISKS, ALTERNATIVES, AND BENEFITS ASSOCIATED WITH THIS PROCEDURE. THE PATIENT WOULD LIKE TO PROCEED AND GAVE CONSENT TO PERFORM THE PROCEDURE. THE PATIENT DENIES UNEXPLAINABLE WEIGHT LOSS, FEVER, CHILLS, OR NEW CHANGES IN URINARY OR BOWEL CONTROL. THE PATIENT IS COVID-19 NEGATIVE DESCRIPTION OF PROCEDURE THE PATIENT WAS BROUGHT TO THE PROCEDURE ROOM AND PLACED IN THE PRONE POSITION. THE LUMBOSACRAL AREA WAS CLEANED WITH CHLORAPREP SOLUTION AND DRAPED ASEPTICALLY. THE PROCEDURE WAS DONE UNDER STERILE CONDITIONS. A TIMEOUT WAS PERFORMED WHERE THE CONSENTED SITE WAS VERIFIED WITH EVERYONE IN THE ROOM. UNDER FLUOROSCOPIC GUIDANCE, THE TARGET POINT WAS SELECTED AT THE LOWER BORDER OF THE RIGHT AND LEFT SACROILIAC JOINT. TARGET POINT WAS SELECTED AFTER MEDIAL ROTATION AND TILT OF THE MAGNIFIER OR THE C-ARM. I CONFIRMED AGAIN THE SITE OF TARGET. LIDOCAINE 0.5% WAS USED TO NUMB THE SKIN AND THE SUBCUTANEOUS TISSUE BELOW IT. SPINAL NEEDLES, 22-GAUGE, WERE ADVANCED UNDER FLUOROSCOPIC GUIDANCE AND FOLLOWING PATIENT FEEDBACK UNTIL THE TARGETS WERE TOUCHED. THE POSITION OF THE NEEDLES WAS VERIFIED WITH AP AND OBLIQUE VIEWS. AFTER PROPER POSITION OF THE NEEDLES WAS ACHIEVED, ISOVUE-M DYE 30%, 0.1 ML, WAS INJECTED SHOWING ADEQUATE SPREAD OF THE DYE. KENALOG 40 MG WAS INJECTED AT EACH SITE. THEN, A SOLUTION OF 3.0 ML OF BUPIVACAINE 0.125% WAS USED TO FLUSH EACH NEEDLE. THE MEDICATIONS WERE VERIFIED WITH THE NURSE. THERE WAS NO EVIDENCE OF BLOOD, PARESTHESIA OR CEREBROSPINAL FLUID DURING THE PROCEDURE. THE PATIENT WAS SENT TO THE RECOVERY ROOM. THE PATIENT WAS MOVING THE EXTREMITIES AND DOING WELL. THERE WERE NO COMPLICATIONS DURING THE PROCEDURE. ESTIMATED BLOOD LOSS WAS LESS THAN 5 ML. FLUOROSCOPIC TIME WAS 22 SECONDS. POST PROCEDURE NOTE THE PATIENT SHOULD HAVE MORE MEDICATION BEFORE THE PROCEDURE IN THE FUTURE. SHE WAS UNCOMFORTABLE. DEPENDING ON THE RESULTS, CONSIDER AN EPIDURAL. THE PROCEDURE DONE WAS DISCUSSED WITH THE PATIENT. THE PATIENT WILL BE SEEN IN A FOLLOW UP IN THE NEXT FEW WEEKS. I AM LOOKING FOR LONG LASTING PAIN RELIEF FOR THE PATIENT WITH THIS INTERVENTION. INSTRUCTIONS WERE GIVEN, QUESTIONS WERE ANSWERED, AND THE PATIENT EXPRESSED UNDERSTANDING AND AGREES WITH THE PLAN. I, ABRIL FAROOQ, DOCUMENTED THE ABOVE INFORMATION ACTING A SCRIBE FOR DR. PALACIOS. I HAVE REVIEWED THE ABOVE DOCUMENT, WRITTEN BY ABRIL FAROOQ, TRAVEL SPECIALIST, AND I VERIFY THAT IT IS ACCURATE PROCEDURE CODES 71940 INJECT SACROILIAC JOINT, MODIFIERS: 50 DISPOSITION & COMMUNICATION FOLLOW UP FOLLOW UP WITH DIRECTOR OF PRECLINICAL RESEARCH (REASON: POST BILATERAL SACROILIAC JOINT BLOCK) ELECTRONICALLY SIGNED BY SHANKAR PALACIOS MD, MD ON 10/18/2020 AT 03:44 PM EDT DISCLAIMER : THIS IS A VISIT SUMMARY EXTRACTED FROM THE [employer] CHART. IT IS NOT A COPY OF THE [employer] PROGRESS NOTE. MTDD
== END ==
LOC: M PAIN 08:30
PROVIDERS: ATTEND Anesthesiology
DX: M46.1 Sacroiliitis, not elsewhere classified (principal); F41.9 Anxiety disorder, unspecified; F32.9 Major depressive disorder, single episode, unspecified; N18.4 Chronic kidney disease, stage 4 (severe); E78.00 Pure hypercholesterolemia, unspecified; E03.9 Hypothyroidism, unspecified; F17.210 Nicotine dependence, cigarettes, uncomplicated; Z79.891 Long term (current) use of opiate analgesic; Z79.899 Other long term (current) drug therapy
CPT/HCPCS: G0260; J3301; Q9967

== ENCOUNTER → 2020-11-07 | Outpatient (CLI) | payer MEDICARE, OTHER ==
[~2020-11-07] MED LIST changes: -BUPIVACAINE HCL 0.25% 30ML VIAL As Ordered ONE; -ISOVUE-M 300 61% 15ML VIAL As Ordered ONE; -LIDOCAINE 1% SDV 30ML VIAL As Ordered ONE; -NORCO, ANEXSIA 5/325MG TABLET (HYDROcodone/ACETAMINOPHEN) As Ordered ONE; -TRIAMCINOLONE ACETONIDE SUSP 40 MG/ML VIAL (J3301) As Ordered ONE; -diazePAM 5MG TABLET As Ordered ONE
--- NOTE | 2020-11-09 03:40 | ECWPNPC ---
PATIENT NAME: HOPE AGUILAR : 1950 GENDER: FEMALE VISIT DATE: 11/07/2020 DISCHARGE DATE: 11/07/20 1051 VISIT LOCKED DATE TIME: PHYSICIAN: ADAM MCQUEEN RESOURCE: ADAM MCQUEEN REASON FOR APPOINTMENT 1. POST BILATERAL SACROILIAC JOINT BLOCK HISTORY OF PRESENT ILLNESS GENERAL: HPI 69-YEAR-OLD FEMALE IN FOR POST BILATERAL SACROILIAC JOINT BLOCK FOLLOW-UP. PATIENT FEELS THE PROCEDURE WAS SUCCESSFUL OVERALL RATING HER PAIN PREPROCEDURE AT A 7 OUT OF 10 AND POST PROCEDURE AT A 4-10. SHE FURTHER STATES THE PROCEDURE CONTINUES TO HELP HER TODAY RATING HER PAIN CURRENTLY AT A 4 OUT OF 10 AND DESCRIBING IT ACHING AND CONTINUOUS.. -. FALL RISK SCREENING: SCREENING : NO FALLS REPORTED IN THE LAST YEAR. PAIN SCREENING: PATIENT HAS A COMPLAINT OF ACUTE OR CHRONIC PAIN :YES LOCATION OF PAIN:LOW BACK SACROILIAC INTENSITY OF PAIN (SCALE OF 1 TO 10):4 WHAT DOES YOUR PAIN FEEL LIKE:ACHING, CONTINOUS DURATION:CONTINOUS, CONSTANT, ALL DAY PAIN IS INCREASED BY:ACTIVITIES PAIN IS DECREASED BY:USE OF PAIN MEDICATIONS NURSING NOTE: -. PAIN CENTER INTAKE QUESTIONS: DO YOU HAVE A HISTORY OF MRSA? :NO DO YOU TAKE A BLOOD THINNERS? :NO DO YOU HAVE ANY BLEEDING DISORDERS? :NO ANY NEW NUMBNESS OR WEAKNESS IN YOUR LEGS OR ARMS? :YES BEHIND THE LEFT RIGHT. PAIN GOES UP THE LOWER BACK ANY PACEMAKER,DEFIBRILLATOR, OR DORSAL COLUMN STIMULATOR? :NO DO YOU HAVE ANY RASHES OR OPEN SORES? :NO ARE YOU ALLERGIC TO IV DYE? :NO ARE YOU DIABETIC? :NO ANY NEW PROBLEMS WITH YOUR MEDICATIONS? :YES PATIENT STATED THAT SHE DOC M TOLD HER TO TELL YOU TO INCREASE HER HYDROCODONE HAVE YOU RECEIVED A VACCINE IN THE PAST 30 DAYS? :NO SECOND COVID VACCINATION 07/17/2020 DO YOU PLAN TO RECEIVE A VACCINE IN THE NEXT 21 DAYS? :NO DO YOU NEED ANY PRESCRIPTION? :NO DO YOU TAKE ANY IMMUNOSUPPRESSIVE MEDICATIONS? :NO IS THERE A CHANCE YOU COULD BE ? :NO ARE YOU BREAST FEEDING? :NO CURRENT MEDICATIONS TAKING ATORVASTATIN CALCIUM 40 MG TABLET 1 TABLET ORALLY ONCE A DAY TAKING CALCITRIOL 0.25 MCG CAPSULE 1 CAPSULE ORALLY ONCE A DAY TAKING CITALOPRAM HYDROBROMIDE 40 MG TABLET 0.5 TABLET ORALLY ONCE A DAY TAKING CLONAZEPAM 0.5 MG TABLET 1 TABLET AT BEDTIME ORALLY THREE TIMES DAILY TAKING LEVOTHYROXINE SODIUM 75 MCG TABLET 1 TABLET IN THE MORNING ON AN EMPTY STOMACH ORALLY ONCE A DAY TAKING QUETIAPINE FUMARATE 400 MG TABLET 1 TABLET AT BEDTIME ORALLY ONCE A DAY TAKING TRAZODONE HCL 300 MG TABLET 1 TABLET AT BEDTIME ORALLY ONCE A DAY TAKING VITAMIN D 50 MCG (2000 UT) TABLET 1 TABLET ORALLY ONCE A DAY TAKING HYDROCODONE-ACETAMINOPHEN 10-325 MG TABLET 1 TABLET NEEDED ORALLY DAILY NOT-TAKING NORCO 10-325MG ORALLY DIRECTED, NOTES: [facility] - DUPLICATE MEDICATION LIST REVIEWED AND RECONCILED WITH THE PATIENT PAST MEDICAL HISTORY ANXIETY DEPRESSION CHRONIC KIDNEY DISEASE, STAGE 4 HYPERCHOLESTEROLEMIA HYPOTHYROIDISM ALLERGIES N.K.D.A. SOCIAL HISTORY GENERAL: TOBACCO USE ARE YOU A:CURRENT SMOKER ARE YOU INTERESTED IN QUITTING?NOT READY TO QUIT COUNSELED THE PATIENT ON SMOKING EFFECTS, EDUCATION [id number]/26/2021 HOW MANY CIGARETTES A DAY DO YOU SMOKE?11-20 HOW SOON AFTER YOU WAKE UP DO YOU SMOKE YOUR FIRST CIGARETTE?31-60 MIN HOW OFTEN DO YOU SMOKE CIGARETTES?EVERY DAY LATEX QUESTIONNAIRE LATEX ALLERGY : HAVE YOU EVER DEVELOPED ANY TYPE OF REACTION AFTER HANDLING LATEX PRODUCTS SUCH RUBBER GLOVES, CONDOMS, DIAPHRAGMS, BALLOONS, SOCKS, OR UNDERWEAR?NO LATEX ALLERGY : HAVE YOU EVER DEVELOPED ANY TYPE OF REACTION DURING OR AFTER DENTAL APPOINTMENT, VAGINAL/RECTAL EXAMINATION, SURGICAL PROCEDURE, OR ANY OTHER EXPOSURE?NO LATEX RISK : HAVE YOU EVER HAD ANY DIFFICULTY BREATHING OR HIVES AFTER EATING OR HANDLING ANY FRUITS, OR VEGETABLES; SUCH KIWI, BANANAS, STONE FRUITS, OR CHESTNUTSNO LATEX RISK : DO YOU HAVE A PREVIOUS PERSONAL HISTORY OF MORE THAN NINE SURGERIES, SPINA BIFIDA, OR REPEATED CATHERIZATIONS? NO LATEX RISK : ARE YOU FREQUENTLY EXPOSED TO LATEX PRODUCTS IN YOUR OCCUPATION?NO DATE ASKED : 11/07/2020 ALCOHOL USE: NO. RECREATIONAL DRUG USE DRUG USE?NO LANGUAGE LANGUAGES SPOKEN:WOLOF EDUCATION LEVEL OF EDUCATION:NOT FINISHED HIGH SCHOOL LEARNING BARRIERS / SPECIAL NEEDS CHANGE FROM LAST VISIT?NO BARRIERS TO LEARNING?NO HEARING IMPAIRED?YES :HEARING AIDES VISION IMPAIRED?YES :CORRECTIVE LENSES COGNITIVELY IMPAIRED?YES : SOME TIMES READINESS TO LEARN?YES LEARNING PREFERENCES?YES :BOOKLETS, HANDOUTS LEARNING CAPABILITIES PRESENT?YES EMOTIONAL BARRIERS?YES ANXIETY AND DEPRESSION SPECIAL DEVICES?NO MAINTENANCE SPECIALIST NEEDED?NO - HAS THE PATIENT BEEN EDUCATED REGARDING HIS/HER PLAN OF CARE?YES HAS THE PATIENT BEEN EDUCATED REGARDING PAIN, THE RISK FOR PAIN, THE IMPORTANCE OF EFFECTIVE PAIN MANAGEMENT, AND THE PAIN ASSESSMENT PROCESS?YES ADVANCE DIRECTIVE ADVANCE DIRECTIVE DISCUSSED WITH PATIENT:YES PATIENT STATES SHE [id number] [phone] REVIEW OF SYSTEMS CONSTITUTIONAL: ANY RECENT FEVER NO . CHILLS NO . WEIGHT CHANGE OF UNKNOWN REASONS NO . GASTROENTEROLOGY: NEW UNEXPLAINABLE CHANGES IN BOWEL CONTROL NO . CONSTIPATION NO . GENITOURINARY: ANY NEW CHANGE IN BLADDER CONTROL? NO . NEUROLOGY: NEW ONSET DIZZINESS OR NEUROLOGICAL CHANGES NOT MENTIONED NO . NEW NUMBNESS OR PAIN PATTERNS NOT MENTIONED AND PERTINENT TO TODAY'S VISIT NO . CARDIOLOGY: NEW CHEST PRESSURE NO . PATIENT DENIES NO . RESPIRATORY: UNEXPLAINABLE COUGH NO . NEW SHORTNESS OF BREATH NO . VITAL SIGNS WT 212.6 LBS, HT 55 IN, BMI 49.41 INDEX, BP 156/74 MM HG, REPEAT BP 152/68 MM HG, HR 95 /MIN, RR 18 /MIN, TEMP 96.7 F, OXYGEN SAT % 99%, SAFE IN ENV? (Y/N) YES, NA INITIALS SC 10:23T.LETY PEÑA, PATIENT STATED THAT SHE DID NOT TAKE ANY OF HER MORNING MEDICATION AND IS CURRENTLY TAKING THEM NOW. EXAMINATION GENERAL EXAMINATION: GENERALNO ACUTE DISTRESS, WELL NOURISHED AND HYDRATED. PSYCHAPPROPRIATE MOOD AND AFFECT . LUNGS:CLEAR TO AUSCULTATION BILATERALLY, NO WHEEZES, RHONCHI, RALES. HEART:NO MURMURS, REGULAR RATE AND RHYTHM. 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 GIVEN PRESENTING SYMPTOMS RECOMMEND FOLLOW-UP IN 1 MONTH. PATIENT HAS EXPRESSED UNDERSTANDING OF AND WAS IN AGREEMENT WITH TREATMENT PLAN. GIVEN TIME TO ASK QUESTIONS AND EXPRESS CONCERNS. [employer] REGISTRY REVIEWED AND DEMONSTRATES COMPLLIANCE. (REF # [id number] ) BRINGS IN MEDICATIONS WHICH IS APPROPRIATE FOR WHAT WAS DISPENSED. RECENT URINE TOXICOLOGY REVIEWED. NO UNAUTHORIZED MEDICATIONS. NO ILLICIT SUBSTANCES AND PRESCRIBED MEDICATIONS WERE PRESENT. PROCEDURE CODES FA211 ESTABILISHED PATIENT [facility] FACILITY CHARGE DISPOSITION & COMMUNICATION FOLLOW UP 4 WEEKS (REASON: SACROILLITIS) ELECTRONICALLY SIGNED BY MILVIA SARABIA ON 11/08/2020 AT 08:45 AM EDT DISCLAIMER : THIS IS A VISIT SUMMARY EXTRACTED FROM THE [employer] CHART. IT IS NOT A COPY OF THE [employer] PROGRESS NOTE. EVELIA
== END ==
LOC: M PAIN 10:30
PROVIDERS: ATTEND Family Medicine
DX: G89.29 Other chronic pain (principal); M46.1 Sacroiliitis, not elsewhere classified; F41.9 Anxiety disorder, unspecified; F32.9 Major depressive disorder, single episode, unspecified; N18.4 Chronic kidney disease, stage 4 (severe); E78.00 Pure hypercholesterolemia, unspecified; E03.9 Hypothyroidism, unspecified; F17.210 Nicotine dependence, cigarettes, uncomplicated; Z79.891 Long term (current) use of opiate analgesic; Z79.899 Other long term (current) drug therapy

== ENCOUNTER → 2020-11-30 | Outpatient (CLI) | payer MEDICARE, OTHER ==
[~2020-11-30] MED LIST changes: -QUET400T PO; +QUET400T2 PO
== END ==
LOC: M PAIN 11:15
PROVIDERS: ATTEND Anesthesiology
DX: Z53.29 Procedure and treatment not carried out because of patient's decision for other reasons (principal)

== ENCOUNTER → 2020-12-22 | Outpatient (CLI) | payer MEDICARE, OTHER | LOC: M PAIN 11:45 | PROVIDERS: ATTEND Anesthesiology | DX: M79.18 Myalgia, other site (principal); M47.816 Spondylosis without myelopathy or radiculopathy, lumbar region; F41.9 Anxiety disorder, unspecified; F32.9 Major depressive disorder, single episode, unspecified; N18.4 Chronic kidney disease, stage 4 (severe); E78.00 Pure hypercholesterolemia, unspecified; E03.9 Hypothyroidism, unspecified; F17.210 Nicotine dependence, cigarettes, uncomplicated; Z79.891 Long term (current) use of opiate analgesic; Z79.899 Other long term (current) drug therapy ==

== ENCOUNTER → 2021-09-08 | Outpatient (REF) | payer MEDICARE, OTHER ==
[~2021-09-08] MED LIST changes: -CITA40TA4 PO; +CITA40TA7 PO; -OMEP-221 PO; +OMEP40CA5 PO
[2021-09-08 16:41] LABS: FREE T3 1.6 PG/ML (2.2-4.0); FREE T4 0.72 NG/DL (0.76-1.46); THYROID STIMULATING HORMONE 2.5 uIU/ML (0.358-3.740)
== END ==
LOC: M WUC 15:35
DX: E03.9 Hypothyroidism, unspecified (principal); E78.2 Mixed hyperlipidemia

== ENCOUNTER → 2021-10-03 | Outpatient (CLI) | payer MEDICARE, OTHER ==
[~2021-10-03] MED LIST changes: +BUPR75TA5 PO; +CALC1CAP31 PO; +LYRI75CA PO; +PRED10TA2 PO; +PROB250C PO
[2021-10-03 15:56] LABS: MEAN CORPUSCULAR HEMOGLOBIN 32.3 pg (27.0-33.0); MEAN CORPUSCULAR HGB CONC 32.4 g/dl (32.0-36.5); MEAN CORPUSCULAR VOLUME 99.7 fl (80.0-96.0); PLATELET COUNT, AUTOMATED 161 10^3/uL (150-450); RED BLOOD COUNT 3.71 10^6/uL (4.00-5.40)
[2021-10-03 16:41] LABS: ALBUMIN 3.6 GM/DL (3.2-5.2); BILIRUBIN,TOTAL 0.4 MG/DL (0.2-1.0); CALCIUM LEVEL 8.7 MG/DL (8.8-10.2); CREATININE FOR GFR 2.58 MG/DL (0.55-1.30); GLOMERULAR FILTRATION RATE 19.5 (>39); POTASSIUM SERUM 3.9 MEQ/L (3.5-5.1); TOTAL PROTEIN 6.9 GM/DL (6.4-8.2)
== END ==
LOC: M WUC 14:30
PROVIDERS: ATTEND Student in an Organized Health Care Education/Training Program
DX: R19.7 Diarrhea, unspecified (principal); Z90.49 Acquired absence of other specified parts of digestive tract

== ENCOUNTER 2021-10-04 10:55 | Emergency (ER) | payer MEDICARE, OTHER ==
[~2021-10-04] VITALS: Ht 165.1 cm; Wt 82.3 kg
[~2021-10-04 10:55] MED LIST changes: -BUPR75TA5 PO; -CALC1CAP31 PO; -LYRI75CA PO; -PRED10TA2 PO; -PROB250C PO
[2021-10-04] MEDS ORDERED: CALC1CAP31 PO (11:22)
[2021-10-04] MEDS ORDERED: PROB250C PO (11:22)
[2021-10-04] MEDS ORDERED: BUPR75TA5 PO (11:22)
[2021-10-04] MEDS ORDERED: LYRI75CA PO (11:22)
[2021-10-04] MEDS ORDERED: QUET400T2 PO (11:22)
[2021-10-04] MEDS ORDERED: ATOR40TA75 PO (11:22)
[2021-10-04] MEDS ORDERED: NS 1,000 ML IV ONE (12:30)
[2021-10-04 13:06] LABS: BASO % 0.4 % (0.0-1.0); EOS # 0.2 10^3/uL (0.0-0.5); EOS % 2.4 % (0.0-3.0); HEMATOCRIT 34.1 % (36.0-47.0); HEMOGLOBIN 11.4 g/dl (12.0-15.5); LYMPH # 1.8 10^3/uL (1.5-5.0); LYMPH % 23.6 % (24.0-44.0); MEAN CORPUSCULAR HEMOGLOBIN 32.9 pg (27.0-33.0); MEAN CORPUSCULAR HGB CONC 33.4 g/dl (32.0-36.5); MEAN CORPUSCULAR VOLUME 98.3 fl (80.0-96.0); MONO # 1.1 10^3/uL (0.0-0.8); NEUTROPHILS # 4.5 10^3/uL (1.5-8.5); NEUTROPHILS % 59.3 % (36.0-66.0); PLATELET COUNT, AUTOMATED 146 10^3/uL (150-450); RED BLOOD COUNT 3.47 10^6/uL (4.00-5.40); WHITE BLOOD COUNT 7.6 10^3/uL (4.0-10.0)
[2021-10-04] MEDS: GASTROGRAFIN SOLUTION 30ML PO SCH ×2 (13:30→13:40)
[2021-10-04 13:54] LABS: ALBUMIN 3.4 GM/DL (3.2-5.2); BILIRUBIN,DIRECT 0.1 MG/DL (0.0-0.2); BILIRUBIN,TOTAL 0.2 MG/DL (0.2-1.0); CALCIUM LEVEL 8.9 MG/DL (8.8-10.2); CREATININE FOR GFR 2.2 MG/DL (0.55-1.30); FREE T4 0.71 NG/DL (0.76-1.46); GLOMERULAR FILTRATION RATE 23.5 (>39); POTASSIUM SERUM 4.2 MEQ/L (3.5-5.1); THYROID STIMULATING HORMONE 2.42 uIU/ML (0.358-3.740); TOTAL PROTEIN 6.6 GM/DL (6.4-8.2)
[2021-10-04] MEDS ORDERED: PRED10TA2 PO (15:14)
[2021-10-04 15:31] VITALS: BP 134/67
== END 2021-10-04 15:44 | disposition home or self-care (01) ==
LOC: M ED 10:55
DX: K52.9 Noninfective gastroenteritis and colitis, unspecified (principal); J44.9 Chronic obstructive pulmonary disease, unspecified; N18.9 Chronic kidney disease, unspecified; E78.5 Hyperlipidemia, unspecified; E03.9 Hypothyroidism, unspecified; F33.9 Major depressive disorder, recurrent, unspecified; F41.9 Anxiety disorder, unspecified; K21.9 Gastro-esophageal reflux disease without esophagitis; R51.9 Headache, unspecified; Z79.899 Other long term (current) drug therapy; Z79.890 Hormone replacement therapy
CPT/HCPCS: 74176; 80048; 80076; 83690; 84439; 84443; 85025; 87507; 96360; 96361; 99284; Q9963

== ENCOUNTER → 2021-10-17 | Outpatient (CLI) | payer MEDICARE, OTHER ==
[~2021-10-17] MED LIST changes: +BUPR75TA5 PO; +CALC1CAP31 PO; +LYRI75CA PO; +PRED10TA2 PO; +PROB250C PO
[2021-10-17 11:49] LABS: BASO % 0.3 % (0.0-1.0); EOS # 0.1 10^3/uL (0.0-0.5); EOS % 0.4 % (0.0-3.0); HEMATOCRIT 36.3 % (36.0-47.0); HEMOGLOBIN 11.5 g/dl (12.0-15.5); LYMPH # 1.7 10^3/uL (1.5-5.0); LYMPH % 14.2 % (24.0-44.0); MEAN CORPUSCULAR HGB CONC 31.7 g/dl (32.0-36.5); MEAN CORPUSCULAR VOLUME 101.1 fl (80.0-96.0); MONO # 0.4 10^3/uL (0.0-0.8); MONO % 3.7 % (2.0-8.0); NEUTROPHILS # 9.6 10^3/uL (1.5-8.5); NEUTROPHILS % 80.6 % (36.0-66.0); PLATELET COUNT, AUTOMATED 164 10^3/uL (150-450); RED BLOOD COUNT 3.59 10^6/uL (4.00-5.40); WHITE BLOOD COUNT 11.9 10^3/uL (4.0-10.0)
[2021-10-17 12:28] LABS: CALCIUM LEVEL 9.7 MG/DL (8.8-10.2); CREATININE FOR GFR 2.19 MG/DL (0.55-1.30); GLOMERULAR FILTRATION RATE 23.6 (>39); PHOSPHORUS LEVEL 3.9 MG/DL (2.5-4.9); POTASSIUM SERUM 5.1 MEQ/L (3.5-5.1)
[2021-10-17 13:24] LABS: PTH INTACT 44.5 PG/ML (18.5-88.0); TOTAL 25(OH) VITAMIN D 46.4 NG/ML (30.0-100.0)
== END ==
LOC: M WUC 09:22
DX: N18.4 Chronic kidney disease, stage 4 (severe) (principal); D63.1 Anemia in chronic kidney disease; N25.81 Secondary hyperparathyroidism of renal origin

== ENCOUNTER → 2021-10-24 | Outpatient (REF) | payer MEDICARE, OTHER | LOC: M LAB REF 11:37 | PROVIDERS: ATTEND Internal Medicine Gastroenterology | DX: K52.9 Noninfective gastroenteritis and colitis, unspecified (principal) ==

== ENCOUNTER → 2021-10-25 | Outpatient (CLI) | payer MEDICARE, OTHER ==
[2021-10-25 11:44] LABS: BASO % 0.2 % (0.0-1.0); EOS # 0.1 10^3/uL (0.0-0.5); EOS % 2.3 % (0.0-3.0); HEMATOCRIT 31.8 % (36.0-47.0); HEMOGLOBIN 10.5 g/dl (12.0-15.5); LYMPH # 1.7 10^3/uL (1.5-5.0); LYMPH % 30.7 % (24.0-44.0); MEAN CORPUSCULAR HEMOGLOBIN 33.8 pg (27.0-33.0); MEAN CORPUSCULAR VOLUME 102.3 fl (80.0-96.0); MONO # 0.5 10^3/uL (0.0-0.8); NEUTROPHILS # 3.2 10^3/uL (1.5-8.5); NEUTROPHILS % 57.6 % (36.0-66.0); PLATELET COUNT, AUTOMATED 158 10^3/uL (150-450); RED BLOOD COUNT 3.11 10^6/uL (4.00-5.40); WHITE BLOOD COUNT 5.5 10^3/uL (4.0-10.0)
[2021-10-25 12:17] LABS: ERYTHROCYTE SEDIMENTATION RATE 46 mm/hr (0-30)
[2021-10-25 12:26] LABS: ALBUMIN 3.3 GM/DL (3.2-5.2); BILIRUBIN,DIRECT 0.1 MG/DL (0.0-0.2); BILIRUBIN,TOTAL 0.5 MG/DL (0.2-1.0); C REACTIVE PROTEIN QUANTITATIV 0.88 MG/DL (0.00-0.30); CREATININE FOR GFR 2.43 MG/DL (0.55-1.30); GLOMERULAR FILTRATION RATE 20.9 (>39); TOTAL PROTEIN 6.3 GM/DL (6.4-8.2)
== END ==
LOC: M LAB 11:11
PROVIDERS: ATTEND Internal Medicine Gastroenterology
DX: K52.9 Noninfective gastroenteritis and colitis, unspecified (principal)

== ENCOUNTER → 2021-10-27 | Outpatient (CLI) | payer MEDICARE, OTHER | LOC: M WUC 09:46 | PROVIDERS: ATTEND Nurse Practitioner Family | DX: M25.78 Osteophyte, vertebrae (principal); M51.36 Other intervertebral disc degeneration, lumbar region; M51.37 Other intervertebral disc degeneration, lumbosacral region; M25.561 Pain in right knee ==

== ENCOUNTER → 2021-11-03 | Outpatient (CLI) | payer MEDICARE, OTHER ==
[2021-11-03 15:52] LABS: BASO % 0.3 % (0.0-1.0); EOS # 0.1 10^3/uL (0.0-0.5); EOS % 0.5 % (0.0-3.0); HEMOGLOBIN 11.3 g/dl (12.0-15.5); LYMPH % 21.7 % (24.0-44.0); MEAN CORPUSCULAR HEMOGLOBIN 32.6 pg (27.0-33.0); MEAN CORPUSCULAR HGB CONC 32.3 g/dl (32.0-36.5); MEAN CORPUSCULAR VOLUME 100.9 fl (80.0-96.0); MONO # 0.8 10^3/uL (0.0-0.8); MONO % 8.3 % (2.0-8.0); NEUTROPHILS # 6.3 10^3/uL (1.5-8.5); NEUTROPHILS % 68.9 % (36.0-66.0); PLATELET COUNT, AUTOMATED 267 10^3/uL (150-450); RED BLOOD COUNT 3.47 10^6/uL (4.00-5.40); WHITE BLOOD COUNT 9.2 10^3/uL (4.0-10.0)
[2021-11-03 18:08] LABS: ALBUMIN 3.6 GM/DL (3.2-5.2); BILIRUBIN,TOTAL 0.3 MG/DL (0.2-1.0); CREATININE FOR GFR 2.05 MG/DL (0.55-1.30); GLOMERULAR FILTRATION RATE 25.5 (>39); POTASSIUM SERUM 4.1 MEQ/L (3.5-5.1); TOTAL PROTEIN 6.4 GM/DL (6.4-8.2)
== END ==
LOC: M WUC 13:21
PROVIDERS: ATTEND Nurse Practitioner Family
DX: E86.0 Dehydration (principal)

== ENCOUNTER → 2023-12-14 | Outpatient (REF) | payer MEDICARE, OTHER ==
[~2023-12-14] MED LIST changes: +ESOM1CAP20 PO; -ESOM1CAP5 PO
== END ==
LOC: M WUC 11:50
PROVIDERS: ATTEND Physician Assistant
DX: R19.7 Diarrhea, unspecified (principal); R10.13 Epigastric pain